=== PATIENT | male | born 1960 | race Hispanic/Latino ===

== ENCOUNTER 2018-09-21 16:11 | Inpatient (IN) | payer MEDICARE ==
[~2018-09-21] VITALS: Ht 165.1 cm; Wt 61.2 kg
[2018-09-21 16:52] LABS: BASOPHILS # (AUTO) 0.1 (0.0-0.1); EOSINOPHILS # (AUTO) 1.8 (0.0-0.4); EOSINOPHILS % 24.6 % (0.0-6.0); HEMATOCRIT 39.1 % (38.2-49.6); HEMOGLOBIN 13.2 g/dL (14.0-18.0); LYMPHOCYTES # (AUTO) 1.5 (1.0-3.2); LYMPHOCYTES % 20.3 % (18.0-39.1); MEAN CORPUSCULAR HEMOGLOBIN 29.5 pg (28-32); MEAN CORPUSCULAR HGB CONC 33.8 g/dL (31-35); MEAN CORPUSCULAR VOLUME 87.5 fL (81-99); MONOCYTES # (AUTO) 0.6 (0.2-0.8); MONOCYTES % 8.8 % (4.4-11.3); NEUTROPHILS # (AUTO) 3.3 (2.1-6.9); NEUTROPHILS % 45.2 % (38.7-80.0); PLATELET COUNT 211 x10e3/uL (140-360); RED BLOOD COUNT 4.47 x10e6/uL (4.3-5.7); RED CELL DISTRIBUTION WIDTH 12.1 % (11.7-14.4)
[2018-09-21 17:02] LABS: INR 0.9
[2018-09-21 17:12] LABS: ALANINE AMINOTRANSFERASE 29 IU/L (0-55); ALBUMIN 3.8 g/dL (3.5-5.0); ALBUMIN/GLOBULIN RATIO 1.2 (0.8-2.0); ALKALINE PHOSPHATASE 91 IU/L (40-150); ANION GAP 10.6 mmol/L (8-16); BLOOD UREA NITROGEN 21 mg/dL (7-26); BUN/CREATININE RATIO 17 (6-25); CALCIUM 9.5 mg/dL (8.4-10.2); CARBON DIOXIDE 26 mmol/L (22-29); CHLORIDE 101 mmol/L (98-107); CREATINE KINASE 393 IU/L (30-200); CREATININE, SERUM 1.21 mg/dL (0.72-1.25); EST GLOMERULAR FILTRATION RATE > 60 ML/MIN (60-); GLUCOSE 286 mg/dL (74-118); MAGNESIUM 1.9 MG/DL (1.3-2.1); POTASSIUM 4.6 mmol/L (3.5-5.1); SODIUM 133 mmol/L (136-145)
--- NOTE | 2018-09-21 17:25 | Diagnostic Imaging Report ---
EXAMINATION: CHEST SINGLE (PORTABLE) INDICATION: ^ERMD ORDER ^[id number] ^1640 ^Y COMPARISON: None FINDINGS: AP view TUBES and LINES: None. LUNGS: Lungs are well inflated. Lungs are clear. There is no evidence of pneumonia or pulmonary edema. PLEURA: No pleural effusion or pneumothorax. HEART AND MEDIASTINUM: The cardiomediastinal silhouette is unremarkable.. BONES AND SOFT TISSUES: No acute osseous lesion. Soft tissues are unremarkable. UPPER ABDOMEN: No free air under the diaphragm. IMPRESSION: No acute thoracic abnormality. Signed by: Dr. Hayley Flores M.D. on 09/21/2018 5:22 PM
[2018-09-21 17:32] LABS: THYROID STIMULATING HORMONE 2.414 uIU/mL (0.350-4.940)
[2018-09-21 18:04] LABS: CLARITY,URINE SL CLOUDY (CLEAR); COLOR,URINE YELLOW (YELLOW)
[2018-09-21 18:05] LABS: BILIRUBIN,URINE NEGATIVE (NEGATIVE); KETONES,URINE NEGATIVE (NEGATIVE); LEUKOCYTE ESTERASE ,URINE NEGATIVE (NEGATIVE); NITRITE,URINE NEGATIVE (NEGATIVE); PROTEIN,URINE DIPSTICK 2+ (NEGATIVE); URINE UROBILINOGEN 0.2 mg/dL (0.2 - 1)
[2018-09-21 18:10] LABS: BACTERIA,URINE FEW /HPF; EPITHELIAL CELLS,URINE MODERATE /LPF; MUCUS,URINE FEW (RARE); RBC,URINE 0-5 /HPF (0-5)
--- NOTE | 2018-09-21 18:15 | Diagnostic Imaging Report ---
History:3 day history of confusion, history of hypertension Comparison studies: None Technique: Axial images were obtained from the skull base to the vertex. Coronal and sagittal images reconstructed from the axial data. Dose modulation, iterative reconstruction, and/or weight based adjustment of the mA/kV was utilized to reduce the radiation dose to as low as reasonably achievable. Intravenous contrast: None Findings: Scalp/skull: No abnormalities. Extra-axial spaces: No masses. No fluid collections. Brain sulci: Mildly prominent. Ventricles: Mild compensatory dilatation. No hydrocephalus. Parenchyma: Cortical and subcortical hypodensities, centered in the angular gyrus of the left inferior parietal lobule and in the overlying superior parietal lobule are felt to be the result of an early subacute vascular insult. No hemorrhage, calcifications or mass effect. No additional acute or chronic cortical vascular insults. Sellar/suprasellar region: No abnormalities. Craniocervical junction: Patent foramen magnum. No Chiari one malformation. Incidental findings: Subtle atherosclerotic calcifications in the carotid siphons . Impression: 1. Cortical and subcortical hypodensities in the left parietal lobe (series 2, images 18-26) are felt to be the result of an acute nonhemorrhagic vascular insult, probably embolic. Recommend MRI without contrast to fully determine the extent of this insult. 2. No additional acute abnormalities. 3. Mild age-related generalized volume loss. 4. Findings discussed with Dr. Jasso on 09/21/2018 at 1810 hours. Signed by: Dr. Rohan Ledezma M.D. on 09/21/2018 6:12 PM
[2018-09-21] MEDS ORDERED: DEXTROSE 50% SYRINGE 50 ML IV PRN (18:30)
[2018-09-21] MEDS ORDERED: ONDANSETRON HCL INJ 2MG/ML 2ML 2 MG/ML VIAL IV PRN (18:30)
[2018-09-21] MEDS: SODIUM CHLORIDE 0.9% 1000ML 1,000 ML IV SCH (18:38)
--- OUTSIDE RECORDS SUMMARY | 2018-09-21 18:44 | XMS REPORT ---
Author Author [facility] Address Unknown Phone Unavailable Care Team Providers Care Plywood Stock Grader Name Role Phone Aj FLOR Unavailable Unavailable Problems This patient has no known problems. Allergies, Adverse Reactions, Alerts This patient has no known allergies or adverse reactions. Medications This patient has no known medications. Results Test Description Test Time Test Comments Text Results Atomic Results Result Comments CT BRAIN WO 2018-09-21 18:05:00 [place] [address] Patient Name: JIM NEWSOME MR #: [id number] : 1960 Age/Sex: 58/M Req #: [id number] Adm Physician: Ordered by: YARELIS PRICE IT INFRASTRUCTURE PROJECT MANAGER Report #: [id number] Location: ER Room/Bed: Procedure: [id number] CT/CT BRAIN WO Exam Date: 09/21/18 Exam Time: 1640 REPORT STATUS: Signed History:3 day history of confusion, history of hypertension Comparison studies: None Technique: Axial images were obtained from the skull base to the vertex. Coronal and sagittal images reconstructed from the axial data. Dose modulation, iterative reconstruction, and/or weight based adjustment of the mA/kV was utilized to reduce the radiation dose to as low as reasonably achievable. Intravenous contrast: None Findings: Scalp/skull: No abnormalities. Extra-axial spaces: No masses. No fluid collections. Brain sulci: Mildly prominent. Ventricles: Mild compensatory dilatation. No hydrocephalus. Parenchyma: Cortical and subcortical hypodensities, centered in the angular gyrus of the left inferior parietal lobule and in the overlying superior parietal lobule are felt to be the result of an early subacute vascular insult. No hemorrhage, calcifications or mass effect. No additional acute or chronic cortical vascular insults. Sellar/suprasellar region: No abnormalities. Craniocervical junction: Patent foramen magnum. No Chiari one malformation. Incidental findings: Subtle atherosclerotic calcifications in the carotid siphons . Impression: 1. Cortical and subcortical hypodensities in the left parietal lobe (series 2, images 18-26) are felt to be the result of an acute nonhemorrhagic vascular insult, probably embolic. Recommend MRI without contrast to fully determine the extent of this insult. 2. No additional acute abnormalities. 3. Mild age-related generalized volume loss. 4. Findings discussed with Dr. Price on 09/21/2018 at 1810 hours. Signed by: Dr. Rohan Ledezma M.D. on 09/21/2018 6:12 PM Dictated By: ROHAN LEDEZMA MD, MD 11 Transcri bed By: SOLANGE on 09/21/181811 COPY TO: YARELIS PRICE IT INFRASTRUCTURE PROJECT MANAGER CHEST [facility] (PORTABLE) 2018-09-21 17:16:00 [place] [address] Patient Name: JIM NEWSOME MR #: [id number] : 1960 Age/Sex: 58/M Req #: [id number] Adm Physician: Ordered by: YARELIS PRICE NP Report #: [id number] Location: ER Room/Bed: Procedure: [id number] DX/CHEST SINGLE (PORTABLE) Exam Date: 09/21/18 Exam Time: 1640 REPORT STATUS: Signed EXAMINATION: CHEST SINGLE (PORTABLE) INDICATION: ERMD ORDER [id number] 1640 Y COMPARISON: None FINDINGS: AP view TUBES and LINES: None. LUNGS: Lungs are well inflated. Lungs are clear. There is no evidence of pneumonia or pulmonary edema. PLEURA: No pleural effusion or pneumothorax. HEART AND MEDIASTINUM: The cardiomediastinal silhouette is unremarkable.. BONES AND SOFT TISSUES: No acute osseous lesion. Soft tissues are unremarkable. UPPER ABDOMEN: No free air under the diaphragm. IMPRESSION: No acute thoracic abnormality. Signed by: Dr. Lauren Hernandez M.D. on 09/21/2018 5:22 PM Dictated By: LAUREN HERNANDEZ MD 21 Transcribed By: SOLANGE on 09/21/181721 COPY TO: YARELIS PRICE NP
--- NOTE | 2018-09-21 19:09 | NUR ---
REPORT GIVEN TO JUAN MEJIA VIOLIN MAKER HAND NURSE
[2018-09-21 19:48] LABS: EOSINOPHILS % (MANUAL) 21 % (0-7); LYMPHOCYTES % (MANUAL) 14 % (19-48); METAMYELOCYTES % (MANUAL) 1 % (0-0); MONOCYTES % (MANUAL) 7 % (3.4-9.0); NEUTROPHILS % (MANUAL) 56 % (40-74); PLATELET ESTIMATE ADEQUATE; PLATELET MORPHOLOGY COMMENT NORMAL; RBC MORPHOLOGY COMMENT NORMAL
[2018-09-21] MEDS ORDERED: LANTUS 3ML100 UNITS/ (20:57)
[2018-09-21] MEDS ORDERED: CILOSTAZOL100 MG PO (20:57)
[2018-09-21] MEDS ORDERED: AMARYL2 MG PO (20:57)
[2018-09-21] MEDS ORDERED: ENALAPRIL MALEA20 MG PO (20:57)
[2018-09-21] MEDS ORDERED: GLUCOPHAGE850 MG PO (20:58)
[2018-09-21] MEDS ORDERED: ACTOS45 MG PO (20:58)
[2018-09-21] MEDS ORDERED: ALTOPREV40 MG PO (20:58)
[2018-09-21] MEDS: INSULIN LISPRO 100 UNIT/1 ML 3ML VIAL SQ SCH (22:54)
[2018-09-21 23:15] VITALS: BP 124/70
[2018-09-22] VITALS (8 sets, daily range): BP systolic 101–156; BP diastolic 58–78
[2018-09-22 01:05] LABS: CREATINE KINASE 278 IU/L (30-200)
[2018-09-22] MEDS: SODIUM CHLORIDE 0.9% 1000ML 1,000 ML IV SCH ×3 (02:22→18:39)
[2018-09-22 06:09] LABS: BASOPHILS # (AUTO) 0.1 (0.0-0.1); BASOPHILS % 0.9 % (0.0-1.0); EOSINOPHILS # (AUTO) 1.9 (0.0-0.4); EOSINOPHILS % 24.7 % (0.0-6.0); HEMATOCRIT 35.5 % (38.2-49.6); HEMOGLOBIN 12.1 g/dL (14.0-18.0); LYMPHOCYTES # (AUTO) 2.1 (1.0-3.2); LYMPHOCYTES % 27.6 % (18.0-39.1); MEAN CORPUSCULAR HEMOGLOBIN 29.9 pg (28-32); MEAN CORPUSCULAR HGB CONC 34.1 g/dL (31-35); MEAN CORPUSCULAR VOLUME 87.7 fL (81-99); MONOCYTES # (AUTO) 0.8 (0.2-0.8); MONOCYTES % 9.9 % (4.4-11.3); NEUTROPHILS # (AUTO) 2.8 (2.1-6.9); NEUTROPHILS % 36.8 % (38.7-80.0); PLATELET COUNT 183 x10e3/uL (140-360); RED BLOOD COUNT 4.05 x10e6/uL (4.3-5.7); RED CELL DISTRIBUTION WIDTH 12.3 % (11.7-14.4)
[2018-09-22 06:38] LABS: ANION GAP 11.8 mmol/L (8-16); BLOOD UREA NITROGEN 20 mg/dL (7-26); BUN/CREATININE RATIO 27 (6-25); CALCIUM 8.8 mg/dL (8.4-10.2); CARBON DIOXIDE 23 mmol/L (22-29); CHLORIDE 106 mmol/L (98-107); CHOL/HDL RATIO 2.8 (3.9-4.7); CHOLESTEROL 160 MD/DL (0-199); CREATININE, SERUM 0.74 mg/dL (0.72-1.25); EST GLOMERULAR FILTRATION RATE > 60 ML/MIN (60-); GLUCOSE 87 mg/dL (74-118); HDL CHOLESTEROL 57 MG/DL (40-60); LDL CHOLESTEROL 93 MG/DL (60-130); POTASSIUM 3.8 mmol/L (3.5-5.1); SODIUM 137 mmol/L (136-145); TRIGLYCERIDES 48 MG/DL (0-149)
[2018-09-22] MEDS: INSULIN LISPRO 100 UNIT/1 ML 3ML VIAL SQ SCH ×5 (07:30→22:26)
[2018-09-22 08:15] LABS: EOSINOPHILS % (MANUAL) 23 % (0-7); LYMPHOCYTES % (MANUAL) 8 % (19-48); MONOCYTES % (MANUAL) 7 % (3.4-9.0); NEUTROPHILS % (MANUAL) 56 % (40-74); PLATELET ESTIMATE ADEQUATE; PLATELET MORPHOLOGY COMMENT NORMAL; RBC MORPHOLOGY COMMENT NORMAL
[2018-09-22] MEDS: ENALAPRIL MALEATE 10 MG TAB PO SCH (08:22)
[2018-09-22] MEDS: PIOGLITAZONE HCL 45 MG TAB PO SCH ×2 (08:22→12:33)
[2018-09-22] MEDS ORDERED: ASPIRIN 81 MG ENTERIC COATED PO SCH (09:00)
[2018-09-22] MEDS ORDERED: NON-FORMULARY MEDICATION (Enalapril Maleate 20 MG) PO SCH (09:00)
[2018-09-22 09:42] LABS: CREATINE KINASE 212 IU/L (30-200)
--- NOTE | 2018-09-22 14:15 | NUR ---
ST NOTE: Acknowledgement for SLE- pt with PT at 10:30 and no photoradio operator available at 1415. Will re-attempt on 09/23/18
--- NOTE | 2018-09-22 16:29 | NUR ---
Nutrition Screen Note RD Recommendation for Physician: -Continue ADA diet as ordered; diet texture per CABLE ASSEMBLER Plan of Care: RD following, monitoring for tolerance and adequacy Nutrition reason for involvement: Diagnosis Primary Diagnose(s): acute CVA, hyperglycemia PMH: DM Ht: 65in Wt: 130lb BMI: 21.6kg/m2 IBW: 136lb RD Assessment: (09/22) Chart reviewed. Labs and meds reviewed. 58yo, who was admitted for CVA. HbA1c at 9.3%. Visited pt in the room. Pt reported good appetite with 100% lunch intake. No complains of nausea or vomiting. LBM 09/22. Pt denied any chewing or swallowing difficulty. CABLE ASSEMBLER following for swallow evaluation. No recent weight loss reported. Will continue to monitor and follow. Current Diet: ADA diet Malnutrition Evaluation (date of eval) The patient does not meet criteria for a specified degree of malnutrition at this time. Will re-evaluate at follow-up as appropriate. Diet Education Needs Assessment: Diet education not indicated. Nutrition Care Level: low Signed: Taylor Jhaveri, MS, RD, LD
--- NOTE | 2018-09-22 17:50 | NUR ---
History and PHysical cc: confusion and limb weakness HPI: 58yoM, PCP , developed confusion and limb weakness on right; Brought to hospital, found to have acute stroke. PMH: DM, HTN PHSx: back Allergies; see emr FH/SH; ; hx cigs; Meds; see MAR ROS: unobtainable v/s; rev'd PE: tired appearing anicteric ns1s2 mod BS no e/t RIGHT ARM WEAK 4/5, WRIST DROP ON RIGHT; right leg appears to be 5/5 with left leg. Pt oriented to self only; confused; unable to perform complete neuro exam skin dry flat affect labs/meds; rev'd A/P: 58yoM Acute Ischemic stroke left parietal lobe- ASA/statin/echo/carotid U/S /neurology consult; PT/OT consult; HTN- use antiHTN meds; HLD- statin DM2- check hab1c/lipids; Hyponatremia- mild; f/u labs N. anemia- f/u Prop; lovenox; pepcid Dispo: f/u labs; Tyrell Miller MD, PhD.
[2018-09-22 18:24] LABS: CREATINE KINASE 173 IU/L (30-200)
[2018-09-22] MEDS: ENOXAPARIN SOD INJ 40 MG/0.4 ML SYR SC SCH (20:22)
[2018-09-22] MEDS ORDERED: ATORVASTATIN 20 MG TAB PO SCH ×2 (21:00)
[2018-09-22] MEDS ORDERED: SODIUM CHLORIDE 0.9% 100 ML 100 ML ONE (22:17)
[2018-09-22] MEDS ORDERED: IOPAMIDOL 370 MG/ML 200 ML INFUS..BTL INJ ONE (22:17)
[2018-09-22] MEDS: ATORVASTATIN 40 MG TAB PO SCH (22:26)
--- NOTE | 2018-09-22 22:48 | Diagnostic Imaging Report ---
EXAMINATION: CT angio of the neck and head with contrast. HISTORY:Right-sided weakness. COMPARISON:No direct comparison, compared with CT brain from 09/21/2018. TECHNIQUE: Multidetector helical axial images were acquired through the neck and head during infusion of iodinated contrast material. Images were reviewed in multiplanar and 3-dimensional format. Dose modulation, iterative reconstruction, and/or weight based adjustment of the mA/kV was utilized to reduce the radiation dose to as low as reasonably achievable. Contrast: 100 mL of Isovue-370 . FINDINGS: NECK: If carotid bulb stenosis is present, stenosis is measured with respect to the distal extracranial internal carotid artery. Aortic arch and major vessels: Few, scattered nonstenotic atherosclerotic calcification. Focal hard atherosclerotic plaque at the origin of left subclavian artery without significant vascular stenosis. Otherwise patent, no abnormality. Common carotid arteries: Patent Cervical carotid bifurcations: Right: Mild nonstenotic atherosclerotic calcification. Left :Moderate to severe hard atherosclerotic plaque. Internal carotid arteries: Right: Focal hard atherosclerotic plaque at the origin of right internal carotid artery results in approximately 25% vascular stenosis. Left: Mixed atherosclerotic plaque at the origin of left internal carotid artery results in approximately 65% vascular stenosis. Vertebral arteries: Patent HEAD: Internal carotid arteries: Mild atherosclerotic calcification in bilateral clinoid and supraclinoid segments without significant vascular stenosis. Vertebral arteries: Patent. Basilar artery: Patent. Posterior cerebral arteries: Patent. Anatomical variants: Anterior communicating artery :Not visualized Posterior communicating arteries: Not visualized. Vertebral arteries: Mild left dominant. Incidental finding: Multifocal dental caries and endodontal disease, the activity of which is to be determined clinically. Chronic fracture deformity of the medial wall of left orbit. IMPRESSION: 1. Mixed atherosclerotic plaque at the origin and proximal left internal carotid artery results in approximately 65% vascular stenosis. 2. Focal hard atherosclerotic plaque at the origin of right internal carotid artery results in approximately 25% vascular stenosis. 3. Mild right and moderate to severe left atherosclerotic plaque at the carotid bulbs. 4. Mild atherosclerotic calcification in bilateral clinoid and supraclinoid segments without significant vascular stenosis. Signed by: Dr. Vika Morris M.D. on 09/22/2018 10:45 PM
[2018-09-23] VITALS (8 sets, daily range): BP systolic 109–153; BP diastolic 62–86
--- NOTE | 2018-09-23 02:41 | Consultation ---
DATE OF CONSULTATION: 09/22/2018 NEUROLOGY CONSULT NOTE HISTORY OF PRESENT ILLNESS: Mr. Davidson is a 58-year-old hohfi-vrvz-wjdddlfl man with past medical history significant for hypertension, hyperlipidemia, diabetes mellitus type 2, and peripheral vascular disease, admitted to [facility] on September 21, 2018, with symptoms of stroke. Three to four days prior to admission, the patient experienced a sudden onset of dysarthria, possible aphasia, weakness and numbness affecting the right arm and leg, and dizziness. Mr. Davidson does not report a visual field cut or other disturbance or confusion. He does report impairment of balance and gait, which he attributes to weakness in the right leg. Initially, Mr. Davidson resisted coming to the hospital. However, after the symptoms persisted for a few days, his convinced him to come to the emergency center at [facility] for further evaluation of his symptoms. Upon arrival in the emergency center, the patient was afebrile with a blood pressure of 152/82 mmHg and a pulse of 92 beats per minute. Documentation of the patient's neurological examination is unable for review at this time. While in the emergency center, Mr. Davidson underwent a CT of the brain without contrast, which revealed an acute ischemic stroke in the left parietal lobe (posterior left middle cerebral artery distribution). Mr. Davidson was admitted to [facility] as an inpatient for further evaluation and treatment of his symptoms. Mr. Davidson does not report experiencing similar symptoms previously. He is not taking aspirin, Plavix, or anticoagulant medication on a daily basis. REVIEW OF SYSTEMS: Confusion (chronic), dysarthria, aphasia, weakness of the right arm and leg, numbness of the right arm and leg, impaired balance and gait, and dizziness. Otherwise, the 12-point review of systems is negative. PAST MEDICAL HISTORY: Hypertension, hyperlipidemia, diabetes mellitus type 2, peripheral vascular disease. PAST SURGICAL HISTORY: Lumbar spine surgery, right foot surgery. PAST HOSPITALIZATIONS: Surgeries/procedures as listed, multiple hospitalizations for complications of diabetes mellitus. FAMILY MEDICAL HISTORY: Diabetes mellitus. SOCIAL HISTORY: Mr. Davidson is . He is not employed. The patient does report a remote history of tobacco use, but quit smoking cigarettes years ago. The patient does not report current or prior alcohol or recreational drug use. HOME MEDICATIONS: Cilostazol 100 mg by mouth twice daily, enalapril 20 mg by mouth daily, lovastatin 40 mg by mouth daily, glimepiride 2 mg by mouth twice daily, metformin 850 mg by mouth 3 times daily with meals, pioglitazone 45 mg by mouth daily, Lantus. ALLERGIES: NO KNOWN DRUG ALLERGIES. NO KNOWN FOOD ALLERGIES. NO KNOWN ALLERGIES TO LATEX. NO KNOWN ALLERGIES TO IODINE OR OTHER CONTRAST MATERIAL. PHYSICAL EXAMINATION: VITAL SIGNS: Height 65 inches, weight 130 pounds, BMI 21.6 kg/m2, blood pressure 121/66 mmHg, pulse 77 beats per minute, respiratory rate 16 breaths per minute, and oxygen saturation 96% on room air. GENERAL: The patient is awake and alert, does not appear distressed. HEENT: Normocephalic, atraumatic. Pupils are equal, round, and reactive to light. Moist mucous membranes. NECK: Supple. No appreciable thyromegaly. No appreciable carotid bruits. CARDIOVASCULAR: S1, S2, regular rate and rhythm. No murmurs, rubs, or gallops. RESPIRATORY: Clear to auscultation bilaterally. No wheezes, rhonchi, or rales. EXTREMITIES: The skin is warm and dry. No clubbing, cyanosis, or edema. The posterior tibial and dorsalis pedis pulses are 1+ and symmetric. SKIN: No rashes or lesions. NEUROLOGIC: Memory/Attention: The patient is awake and alert, oriented to person, place, time, and situation. Cranial Nerves: Cranial nerve I-not tested. Cranial nerves II, III, IV, and -pupils are equal and round, reactive briskly to light (from 4 mm to 2 mm). Extraocular movements intact. No nystagmus. Cranial nerve V- sensation to light touch and pinprick is intact in the bilateral V1 through V3 distributions. Strength in the temporalis and masseter muscles are within normal limits. Cranial nerve VII-the face is asymmetric on the right, as are all facial movements. Mild right central facial weakness is appreciated. Cranial nerves VIII-hearing is intact to finger rub bilaterally. Cranial nerves IX, X-the soft palate elevates equally and symmetrically. Cranial nerve XI-normal strength of the bilateral sternocleidomastoid and trapezius muscles. Cranial nerve XII-the tongue protrudes to midline and moves symmetrically from side to side. Strength: Bulk is normal. Strength is 5/5 in the left deltoids, biceps, triceps, wrist flexors and extensors, finger flexors and extensors, intrinsic hand muscles, hip flexors, knee flexors and extensors, ankle dorsiflexion and plantar flexion, and intrinsic foot muscles. In the right arm, the flexors are 4+/5 and the extensors are 4/5. In the right leg, flexors are 4-/5 and extensors are 4/5. Tone is mildly increased in the right arm and right leg. DTRs: Deep tendon reflexes are 1+ at the left triceps, biceps, brachioradialis, and patella. Deep tendon reflexes are 2+ at the right triceps, biceps, brachioradialis, and patella. Deep tendon reflexes are absent and symmetric at the Achilles. Plantar responses are flexor on the left and extensor on the right. Sensation: Sensation is intact to light touch and pinprick in both arms and both legs. Cerebellar: Hjgzdt-khsi-njbess and heel-keys movements are impaired on the right, but within the bounds of paresis. Gait: Deferred. Speech: Spontaneous speech is mildly dysarthric with moderate receptive aphasia. Repetition is not intact. Involuntary movements: None. Pronator drift: Right arm and right leg. LABORATORY DATA: The most recent basic metabolic panel is unremarkable. A liver function panel collected on September 21, 2018, is unremarkable. Creatine kinase has been elevated at 393, 278, 212, 173. Otherwise, cardiac enzymes are negative. B-natriuretic peptide is less than 10.0. TSH is 2.414. Hemoglobin A1c is 9.3. Total cholesterol 160, triglycerides 48, LDL cholesterol 93, HDL cholesterol 57. The CBC with differential and platelets reveals a white blood cell count of 7.68 with a right shift with 56.8% neutrophils, 27.6% lymphocytes, 9.9% monocytes, 24.7% eosinophils, and 0.9% basophils. The coagulation profile is within normal limits. A urinalysis revealed slightly cloudy urine with 2+ protein, 3+ glucose, 1+ blood. A urine culture collected on September 21, 2018, is pending. DIAGNOSTIC STUDIES: Electrocardiogram of 09/21/2018: Normal sinus rhythm at 88 beats per minute. Chest x-ray of 09/21/2018: No acute thoracic abnormality. CT of the brain without contrast of 09/21/2018: On my review, there is acute ischemia in the left posterior middle cerebral artery distribution. Cerebral volumes are appropriate for age. There are findings compatible with rghp-nt-fhbfvago chronic small-vessel ischemic disease. Echocardiogram of 09/22/2018: Ejection fraction 50%-55%. No valvular disease is noted. Bilateral carotid artery ultrasound with Doppler of 09/22/2018: There is atherosclerosis without hemodynamically significant stenosis at the right carotid bulb and right carotid bifurcation. There is atherosclerosis with possible hemodynamically significant stenosis at the left carotid bulb, the left carotid bifurcation, and the left internal carotid artery with a notation of greater than 70% narrowing in the left internal carotid artery. Flow is antegrade in the left vertebral artery, flow is not indicated in the right vertebral artery. ASSESSMENT AND PLAN: Mr. Davidson is a 58-year-old feyon-apeb-fuhflrmf man with multiple vascular risk factors, admitted to [facility] on September 21, 2018, with a left posterior distribution middle cerebral artery stroke. The patient's neurological examination is significant for mild right hemiparesis, dysarthria, and receptive aphasia. The patient's laboratory data and other diagnostic studies have been reviewed and are documented above. RECOMMENDATIONS: Recommendations are as follows: 1. A CTA of the brain and neck with contrast will be ordered for further evaluation of possible left internal carotid artery stenosis. 2. Aspirin will be continued for stroke prophylaxis, but the dose will be increased to 325 mg by mouth daily. 3. As the patient's stroke occurred 3-4 days ago, his blood pressure may be normalized. His goal blood pressure prior to discharge was less than 140/90 mmHg. Continue the patient's home antihypertensive medications. Monitor vital signs per unit protocol. 4. The patient's goal total cholesterol is less than 200 with an LDL of less than 70. The patient's LDL was 93. Treatment with atorvastatin will be continued, but the dose will be increased to 80 mg by mouth at bedtime daily. 5. The patient's goal hemoglobin A1c is less than 7.0. Mr. Davidson's hemoglobin A1c is 9.3. Treatment will be deferred to the primary and other services following the patient. Of note, treatment with metformin should be held for 48 hours, status post administration of iodinated contrast. 6. Speech and Physical Therapy evaluations have been ordered. The Speech Therapy evaluation is pending. Physical Therapy is recommending discharge to home with outpatient physical therapy. Occupational Therapy has the same recommendations as Physical Therapy. 7. Gastrointestinal prophylaxis with Pepcid 20 mg by mouth twice daily with meals. Deep venous thrombosis prophylaxis with Lovenox 40 mg subcutaneously daily. 8. Defer treatment of the remaining medical comorbidities to the primary and other services following the patient. Thank you for this consultation. I will continue to follow the patient while he remains in the hospital. TIME SPENT: 70 minutes. Nai Zamarripa MD CP/TIMO /[id number] MTDD
--- NOTE | 2018-09-23 06:40 | NUR ---
IM- progress note O/N; no events ROS: unobtainable v/s; rev'd PE: tired appearing anicteric ns1s2 mod BS no e/t RIGHT ARM WEAK 4/5, WRIST DROP ON RIGHT; right leg appears to be 5/5 with left leg. Pt oriented to self only; confused; unable to perform complete neuro exam skin dry flat affect labs/meds; rev'd A/P: 58yoM Acute Ischemic stroke left parietal lobe- ASA/statin/echo/carotid U/S /neurology consult; PT/OT consult; HTN- use antiHTN meds; HLD- statin DM2- check hab1c/lipids; Hyponatremia- mild; f/u labs N. anemia- f/u Prop; lovenox; pepcid Dispo: f/u labs; 09/23 Left carotid 65% stenosis, right 25%, mod-severe plaque in bulb; f/u echo. BP is controlled. Tyrell Miller MD, PhD.
[2018-09-23] MEDS: INSULIN LISPRO 100 UNIT/1 ML 3ML VIAL SQ SCH ×4 (07:30→21:57)
[2018-09-23] MEDS ORDERED: ASPIRIN 81 MG ENTERIC COATED PO SCH (09:00)
[2018-09-23] MEDS: PIOGLITAZONE HCL 45 MG TAB PO SCH (09:09)
[2018-09-23] MEDS: ASPIRIN 325 MG TAB EC PO SCH (09:09)
[2018-09-23] MEDS: FAMOTIDINE 20 MG TAB PO SCH ×2 (09:09→18:24)
[2018-09-23] MEDS: SODIUM CHLORIDE 0.9% 1000ML 1,000 ML IV SCH ×3 (10:19→18:22)
[2018-09-23] MEDS: ENALAPRIL MALEATE 10 MG TAB PO SCH (12:41)
[2018-09-23] MEDS: ENOXAPARIN SOD INJ 40 MG/0.4 ML SYR SC SCH (18:24)
--- NOTE | 2018-09-23 19:10 | NUR ---
Bedside report received. patient received aaox2-3, sitting in bed. resp. even and unlabored. no s/s of distress observed. denies pain. denies needs. family member to side. call light within reach. bed locked and in lowest position. continue to monitor.
--- NOTE | 2018-09-23 19:25 | NUR ---
Dr. Zamarripa rounding. Dr. Mata consulted per orders.
[2018-09-23] MEDS: ATORVASTATIN 40 MG TAB PO SCH (21:56)
[2018-09-24] VITALS: BP 139/80
--- NOTE | 2018-09-24 00:05 | NUR ---
WALKING ROUNDS. PATIENT IN STABLE CONDITION, SLEEPING COMFORTABLY.
--- NOTE | 2018-09-24 00:30 | NUR ---
PATIENT NEEDED ZIPPER JOINER TO BATHROOM. NOTED PATIENT SWEATING PROFUSELY, SUGAR AT 52. GAVE JUICE AND COOKIES. PATIENT STATED HE FEELS BETTER. WASHED OFF PATIENT, LINEN AND GOWN CHANGED. WILL REASSESS BLOOD SUGAR.
--- NOTE | 2018-09-24 01:20 | NUR ---
blood sugar reassessed, now 104
[2018-09-24] MEDS: SODIUM CHLORIDE 0.9% 1000ML 1,000 ML IV SCH ×2 (02:22→10:22)
[2018-09-24 04:00] VITALS: BP 165/81
--- NOTE | 2018-09-24 05:29 | NUR ---
Discharge Summary A/P: 58yoM Acute Ischemic stroke left parietal lobe- ASA/statin/echo/carotid U/S /neurology consult; PT/OT consult; HTN- use antiHTN meds; HLD- statin DM2- check hab1c/lipids; Hyponatremia- mild; f/u labs N. anemia- f/u Prop; lovenox; pepcid Dispo: f/u labs; 09/23 Left carotid 65% stenosis, right 25%, mod-severe plaque in bulb; f/u echo. BP is controlled. 09/24 f/u echo; d/c actos; f/u PCP 1 week, 10 days, 1 week. Stable and improving; (right wrist drop resolved) d/c >35mins d/c home with PT. Tyrell Miller MD, PhD.
[2018-09-24] MEDS ORDERED: Atorvastatin PO (05:57)
[2018-09-24] MEDS ORDERED: ASPIR 8181 MG PO (05:57)
[2018-09-24] MEDS ORDERED: PLAVIX75 MG PO (05:57)
[2018-09-24] MEDS ORDERED: FAMOTIDINE20 MG PO (05:57)
[2018-09-24] MEDS ORDERED: METOPROLOL TART25 MG PO (06:01)
[2018-09-24] MEDS: FAMOTIDINE 20 MG TAB PO SCH (08:20)
[2018-09-24] MEDS: ENALAPRIL MALEATE 10 MG TAB PO SCH (09:20)
[2018-09-24 09:32] VITALS: BP 162/81
--- NOTE | 2018-09-24 11:01 | NUR ---
CASE MANAGEMENT ASSESSMENT Health Inspector to bedside to discuss plan of care with patient/family. CM/SW role and care transitions discussed. Anticipated discharge plan discussed along with duration of care. CM/SW discussed patients right to make decisions in care. CM/SW work hours given. Patient lives: with Michelle and kids Admit/Transfer: thru ED Hospital/ER visits since last admit: states admitted sometime last year at [place] POA/Emergency contact: Michelle Davidson [phone] Current/Previous Home Health: none PCP/Follow-up Care: Dr. Kelly - advised pt to follow up with a MD within 7 days of discharge Current/Previous DME: none Scale of 1-10 how comfortable does patient feel with disease management in outpatient setting: Other Services: none Employment Status: unemployed Areas of Concerns: embolic cva Referral Needs: home health Education Needs: medical management IMM/READ given and signed (if applicable): IMM on chart Goal for discharge: Home with home health CM spoke with pt regarding home health. Pt is agreeable to any company that takes his insurance. Choice letter signed for [facility]. Copy to pt. Informed pt that home health will see pts within 24-48 hrs of discharge and to call them if he does not hear from them. He acknowledged. CM/SW left business card at the bedside with contact information. Name and number was also written on the patients whiteboard. Patient verbalized understanding of discussion. CM will follow-up with ongoing discharge and transition of care needs.
[2018-09-24] MEDS: ASPIRIN 325 MG TAB EC PO SCH (11:14)
--- NOTE | 2018-09-24 11:45 | NUR ---
Pt has been evaluated and was discharged due to high level of functioning. No PT services recommended. Pls refer to the PT eval form. Addendum: 09/24/18 at 1458 by Melchor Stewart PT Amended: Links added.
[2018-09-24 12:28] VITALS: BP 198/96
[2018-09-24] MEDS: INSULIN LISPRO 100 UNIT/1 ML 3ML VIAL SQ SCH (12:53)
--- NOTE | 2018-09-24 13:46 | NUR ---
Spoke to Bernie at [facility]. She has received clinicals. Stated they should be able to accept pt. Informed her that pt will discharge today. She stated that once they work up the clinical, they will reach out to pt. Addendum: 09/24/18 at 1354 by Maritza Ford CM P [phone] F [phone]
== END 2018-09-24 13:50 | disposition home health service (06) | DRG 65 ==
LOC: ER 16:11 → ERHOLD 18:22 → MED/SURG 23:16
PROVIDERS: ADMIT Internal Medicine; ATTEND Internal Medicine
DX: I63.512 Cerebral infarction due to unspecified occlusion or stenosis of left middle cerebral artery (principal); I69.351 Hemiplegia and hemiparesis following cerebral infarction affecting right dominant side; E87.1 Hypo-osmolality and hyponatremia; R47.01 Aphasia; I10 Essential (primary) hypertension; E78.5 Hyperlipidemia, unspecified; D64.9 Anemia, unspecified; E11.51 Type 2 diabetes mellitus with diabetic peripheral angiopathy without gangrene; I65.23 Occlusion and stenosis of bilateral carotid arteries; R47.1 Dysarthria and anarthria; E11.65 Type 2 diabetes mellitus with hyperglycemia; R26.9 Unspecified abnormalities of gait and mobility; Z87.891 Personal history of nicotine dependence; Z79.4 Long term (current) use of insulin; Z79.02 Long term (current) use of antithrombotics/antiplatelets; Z79.82 Long term (current) use of aspirin
CPT/HCPCS: 36415; 70450; 70496; 70498; 71045; 80048; 80053; 80061; 81001; 82550; 82553; 82948; 83036; 83735; 83880; 84443; 84484; 85025; 85610; 85730; 87086; 92523; 93005; 93306; 93880; 99284; J1650; J7030; Q9967

== ENCOUNTER 2019-10-25 13:37 | Inpatient (IN) | payer MEDICARE ==
[~2019-10-25] VITALS: Ht 165.1 cm; Wt 66.5 kg
[~2019-10-25 13:37] MED LIST: ACTOS45 MG PO; ALTOPREV40 MG PO; AMARYL2 MG PO; ASPIR 8181 MG PO; Atorvastatin PO; CILOSTAZOL100 MG PO; ENALAPRIL MALEA20 MG PO; FAMOTIDINE20 MG PO; GLUCOPHAGE850 MG PO; LANTUS 3ML100 UNITS/; METOPROLOL TART25 MG PO; PLAVIX75 MG PO
[2019-10-25 14:19] LABS: BASOPHILS # (AUTO) 0.1 (0.0-0.1); BASOPHILS % 0.5 % (0.0-1.0); EOSINOPHILS % 15.9 % (0.0-6.0); HEMATOCRIT 28.3 % (38.2-49.6); HEMOGLOBIN 9.2 g/dL (14.0-18.0); LYMPHOCYTES # (AUTO) 1.4 (1.0-3.2); LYMPHOCYTES % 11.5 % (18.0-39.1); MEAN CORPUSCULAR HEMOGLOBIN 28.2 pg (28-32); MEAN CORPUSCULAR HGB CONC 32.5 g/dL (31-35); MEAN CORPUSCULAR VOLUME 86.8 fL (81-99); MONOCYTES # (AUTO) 1.2 (0.2-0.8); MONOCYTES % 9.5 % (4.4-11.3); NEUTROPHILS # (AUTO) 7.7 (2.1-6.9); NEUTROPHILS % 61.9 % (38.7-80.0); PLATELET COUNT 411 x10e3/uL (140-360); RED BLOOD COUNT 3.26 x10e6/uL (4.3-5.7); RED CELL DISTRIBUTION WIDTH 12.5 % (11.7-14.4)
[2019-10-25 14:34] LABS: ALANINE AMINOTRANSFERASE 32 IU/L (0-55); ALBUMIN 3.1 g/dL (3.5-5.0); ALBUMIN/GLOBULIN RATIO 0.7 (0.8-2.0); ALKALINE PHOSPHATASE 167 IU/L (40-150); ANION GAP 13.3 mmol/L (8-16); BLOOD UREA NITROGEN 17 mg/dL (7-26); BUN/CREATININE RATIO 18 (6-25); CALCIUM 9.4 mg/dL (8.4-10.2); CARBON DIOXIDE 24 mmol/L (22-29); CHLORIDE 106 mmol/L (98-107); CREATININE, SERUM 0.95 mg/dL (0.72-1.25); EST GLOMERULAR FILTRATION RATE > 60 ML/MIN (60-); GLUCOSE 221 mg/dL (74-118); POTASSIUM 4.3 mmol/L (3.5-5.1); SODIUM 139 mmol/L (136-145)
--- NOTE | 2019-10-25 14:53 | Diagnostic Imaging Report ---
EXAMINATION: FOOT LEFT COMPLETE INDICATION: Heel infection COMPARISON: None FINDINGS: Soft tissue ulceration at the heel with associated soft tissue swelling. No specific radiographic evidence of osteomyelitis. No acute fracture or dislocation. Alignment appears anatomic. Scattered degenerative changes. Diffuse atherosclerotic arterial calcifications. IMPRESSION: Soft tissue ulceration of the left heel without specific radiographic findings of underlying osteomyelitis. No acute osseous injury. Scattered degenerative changes. Signed by: Desirae Martines MD on 10/25/2019 2:50 PM
[2019-10-25 14:59] LABS: ERYTHROCYTE SEDIMENTATION RATE 109 mm/hr (0-13)
[2019-10-25] MEDS ORDERED: PIPERACILLIN/TAZO 4.5 GM 100 ML IV STA (15:02)
[2019-10-25] MEDS ORDERED: AMLODIPINE BESY10 MG PO (15:10)
[2019-10-25] MEDS ORDERED: LISINOPRIL40 MG PO (15:10)
[2019-10-25] MEDS ORDERED: ATORVASTATIN CA40 MG PO (15:10)
[2019-10-25] MEDS ORDERED: VANCOMYCIN 1GM/NS 250 ML 250 ML IV SCH (15:30)
[2019-10-25 16:57] VITALS: BP 140/65
[2019-10-25 17:00] VITALS: BP 140/65
--- NOTE | 2019-10-25 19:55 | NUR ---
RECEIVED PT IN BED AOX3 .PT HAS CELLULITIS TO LEFT LOWER FOOT .DENIES PAIN .PT IS ON IV ABT .CALL LIGHT WITH IN REACH .CONTINUE TO MONITOR
[2019-10-25 20:20] VITALS: BP 140/65
[2019-10-25 20:54] VITALS: BP 157/81
[2019-10-25 22:00] LABS: EOSINOPHILS % (MANUAL) 10 % (0-7); LYMPHOCYTES % (MANUAL) 13 % (19-48); MONOCYTES % (MANUAL) 6 % (3.4-9.0); NEUTROPHILS % (MANUAL) 65 % (40-74)
[2019-10-25 22:01] LABS: PLATELET ESTIMATE ADEQUATE; PLATELET MORPHOLOGY COMMENT NORMAL; RBC MORPHOLOGY COMMENT NORMAL
[2019-10-25] MEDS ORDERED: DEXTROSE 50% SYRINGE 50 ML IV PRN (22:30)
[2019-10-25] MEDS ORDERED: HYDRALAZINE HCL 20 MG/ML VIAL IV PRN (22:30)
[2019-10-25] MEDS ORDERED: ACETAMINOPHEN 325 MG TAB PO PRN (22:30)
[2019-10-25] MEDS: CEFEPIME 1GM/NS 0.9% 50 ML 50 ML IV SCH (22:30)
[2019-10-25] MEDS ORDERED: ONDANSETRON HCL INJ 2MG/ML 2ML 2 MG/ML VIAL IV PRN (22:30)
[2019-10-25] MEDS ORDERED: SODIUM CHLORIDE 0.9% 250ML 250 ML ONE (23:34)
[2019-10-25] MEDS: HYDROCODONE/APAP 5MG-325MG TAB PO PRN (23:53)
[2019-10-26] VITALS (8 sets, daily range): BP systolic 107–138; BP diastolic 55–71
--- NOTE | 2019-10-26 05:26 | NUR ---
PT RESTING C/O PAIN TO THE LEFT LEG .MEDICATED WITH ORDERED PAIN MEDICATION.CALL LIGHT WITH IN REACH .CONTINUE TO MONITOR
--- NOTE | 2019-10-26 06:53 | NUR ---
BEDSIDE REPORT GIVEN TO THE ONCOMING NURSE
--- NOTE | 2019-10-26 07:18 | NUR ---
BEDSIDE REPORT GIVEN TO THE ONCOMING NURSE
[2019-10-26] MEDS: INSULIN LISPRO 100 UNIT/1 ML 3ML VIAL SQ SCH ×4 (07:30→21:00)
[2019-10-26] MEDS: CLOPIDOGREL BISULFATE 75 MG TAB PO SCH (08:26)
[2019-10-26] MEDS: LISINOPRIL 20 MG TAB PO SCH (08:26)
[2019-10-26] MEDS: AMLODIPINE BESYLATE 10 MG TAB PO SCH (08:26)
[2019-10-26] MEDS: FAMOTIDINE 20 MG TAB PO SCH ×2 (08:26→16:19)
[2019-10-26] MEDS: ATORVASTATIN 40 MG TAB PO SCH (08:26)
--- NOTE | 2019-10-26 10:17 | NUR ---
PATIENT AWAKE AND ALERT ACYANOTIC. TRANSFERRED TO RADIOLOGY VIA WHEELCHAIR AT APPROXIMATELY 0954. WOUND TO LEFT FOOT LOOSELY COVERED FOR XRAY AND MRI PROCEDURES
--- NOTE | 2019-10-26 11:03 | Consultation ---
DATE OF CONSULTATION: 10/26/2019 REASON FOR CONSULTATION: Nonhealing ulceration to the left foot with the patient being diabetic. HISTORY OF PRESENT ILLNESS: This is a pleasant 59-year-old male, who is well known to me from previous office visits, whose ulceration to the left heel has gotten progressively worse secondary to his peripheral arterial disease and diabetic neuropathy. He is currently denying any history of fever, chills, nausea, or vomiting, but has some foul smell to the left heel ulceration. Ulceration was debrided down to subcutaneous tissue and muscle in the office several days ago. He is currently on oral antibiotics such as Bactrim and Augmentin 875 mg. PAST MEDICAL HISTORY: Remarkable for insulin-dependent diabetes times 10+ years and hypertension. PAST SURGICAL HISTORY: Remarkable for back surgery. ALLERGIES: THE PATIENT DENIES. SOCIAL HISTORY: Denies any smoking, drinking, or recreational drug use. FAMILY HISTORY: Remarkable for diabetes. CURRENT MEDICATIONS: Note listed in chart including IV Zosyn and vancomycin. REVIEW OF SYSTEMS: CARDIAC: Denies any palpitations or arrhythmias. RESPIRATORY: Denies any shortness of breath or productive cough. GASTROINTESTINAL: Denies any diarrhea or constipation. GENITOURINARY: Denies any hematuria or problems voiding. LABORATORY DATA: Noted has a white blood cell count of 12.3, hemoglobin 9.2 with a platelet count of 411. Blood glucose of 138. PHYSICAL EXAMINATION: VITAL SIGNS: Afebrile, pulse rate 87, respirations 19, blood pressure 117/65, O2 saturation 96%. Podiatric physical examination reveals the following: VASCULATURE: Pedal pulses of both the DP and PT are diminished to both lower extremities. Skin temperature is warm and cool to touch. NEUROLOGIC: Reveals decreased and protective sensation when utilizing [place]-Gordon 5.07 monofilament wire. MUSCULOSKELETAL: Reveals muscle mass to be symmetrical. Muscle strength to be 4/5 to all muscle groups. DERMATOLOGIC: Grade 3 ulceration, posterior aspect, left heel with positive cellulitis and foul smell. Some necrosis noted, but no bone exposed. More than 3 cm to 3.5 cm in diameter. ASSESSMENT: Grade 3 ulcer, diabetic neuropathy, peripheral arterial disease. PLAN: We will continue IV antibiotics. We will continue offloading with toe under calf at all times to offload heel. We will start Santyl followed by diluted wet-to-dry Betadine b.i.d. pending MRI examination on this date. Dr. Jaeger for vascular evaluation and possible intervention. We will treat conservatively for now. The patient is aware if not responsive, may lose part of his foot or even his leg. GUMARO Almonte/TIMO /[id number]
[2019-10-26] MEDS: CEFEPIME 1GM/NS 0.9% 50 ML 50 ML IV SCH ×2 (11:18→22:00)
--- NOTE | 2019-10-26 11:52 | Diagnostic Imaging Report ---
Bilateral calcanei - 2 view(s) each HISTORY: Pain. COMPARISON: None available. FINDINGS: No discrete osseous erosion seen in either calcaneus. No fracture. There is a large soft tissue defect of the left heel. Extensive vascular calcifications are noted bilaterally. IMPRESSION: No specific radiographic evidence of calcaneal osteomyelitis bilaterally. An MRI may be performed for a more sensitive evaluation. Signed by: Jer Serrano MD on 10/26/2019 11:48 AM
[2019-10-26] MEDS: COLLAGENASE 5 GM TUBE TP SCH ×2 (12:00→16:19)
[2019-10-26] MEDS: POVIDONE IODINE 10% 120 ML BTL EXT SCH ×2 (12:00→16:19)
[2019-10-26] MEDS: HYDROCODONE/APAP 5MG-325MG TAB PO PRN (12:09)
--- NOTE | 2019-10-26 12:10 | NUR ---
WOUND CX OF LEFT FOOT RECEIVED BY LAB
--- NOTE | 2019-10-26 12:34 | Diagnostic Imaging Report ---
MRI of the left forefoot without contrast. History: Cellulitis. Osteomyelitis. Wound. Decreased range of motion. Technique: Multiplanar multisequence MRI of the hindfoot without contrast Comparison: Radiographs 10/25/2019 Findings: Abnormal skin ulceration/soft tissue defect at the posterior lateral aspect of the foot/heel on the plantar surface with associated abnormal adjacent soft tissue edema. No well-formed drainable fluid collection/abscess is seen in the region. There is underlying abnormal bone marrow edema and cortical erosion at the posterior inferior lateral calcaneus best seen on series 6 image 9 through 12. This is worrisome for osteomyelitis. Scattered degenerative changes are seen about the remaining visualized osseous structures. Diffuse muscle atrophy. No ligamentous or tendon tear. Physiologic amount of fluid in the ankle joint. Impression: Abnormal skin ulceration/soft tissue defect at the posterior lateral aspect of the foot/heel on the plantar surface with associated abnormal adjacent soft tissue edema. No well-formed drainable fluid collection/abscess is seen in the region. There is underlying abnormal bone marrow edema and cortical erosion at the posterior inferior lateral calcaneus best seen on series 6 image 9 through 12. This is worrisome for osteomyelitis. Signed by: Dr. Ozzy Frye M.D. on 10/26/2019 12:31 PM
--- NOTE | 2019-10-26 14:53 | Consultation ---
DATE OF CONSULTATION: REASON FOR CONSULTATION: The patient has infection of his foot. HISTORY OF PRESENT ILLNESS: This patient who is very pleasant 59-year-old male, comes in with left foot infection. The patient who does have underlying history of diabetes mellitus, hypertension, atherosclerotic disease, peripheral vascular disease, comes in with redness and swelling of his foot, which he had for a while. The patient denies history of trauma. The patient was admitted. Blood cultures obtained. Podiatry was consulted. LABORATORY DATA: White count 12.38, hemoglobin 9.2. His sodium 139, potassium 4.3 with creatinine 0.95. PHYSICAL EXAMINATION: GENERAL: He is currently alert, oriented, does not seem in acute distress. VITAL SIGNS: Stable, currently afebrile. HEENT: Not icteric. NECK: Supple. CHEST: Clear. HEART: S1 and S2. No S3, S4, or murmur. EXTREMITIES: Left foot and ankle, there is redness and swelling. An MRI was done. IMPRESSION: Left foot infection. MRI shows superficial skin infection and osteomyelitis. Agree with vancomycin. Agree with cefepime. Recommend also vascular workup. Obtain sedimentation rate, C-reactive protein. Obtain the PICC line. Arrange for 6 weeks of IV antibiotic. Follow vancomycin level, weekly CBC, weekly Chem panel. MD PATRIZIA Jett/TIMO /[id number]
[2019-10-26] MEDS: ENOXAPARIN SOD INJ 40 MG/0.4 ML SYR SC SCH (16:24)
--- NOTE | 2019-10-26 16:46 | NUR ---
Nutrition Screen Note RD Recommendation for Physician: - Continue current diet Plan of Care: RD following, monitoring for tolerance and adequacy - diet education materials provided 10/25 Nutrition reason for involvement: Nutrition Risk Trigger Primary Diagnose(s): cellulits of L lower limb, non-healing ulcer to L foot, DM2 PMH: IDDM, PAD, peripheral neuropathy, HTN Ht: 65 in Wt: 135 lb BMI: 22.5 kg/m2 IBW: [address] Assessment: (10/25) 59 YOM admitted for non healing ulcer to L foot, seen today per MST screen. Pt speaks very little Azeri, he was able to report good intake and no GI distress. No reported wt loss on admit. Pt provided with DM2 diet education materials in [place]an, pt with no questions regarding materials at time of visit. Chart reviewed. Labs and meds reviewed, BG in 200's- currently on Lispro. Will continue to monitor. Current Diet: 1800 ADA Malnutrition Evaluation (10/26/19) The patient does not meet criteria for a specified degree of malnutrition at this time. Will re-evaluate at follow-up as appropriate. Energy intake: No poor intake per RN, unable to obtain hx from pt Weight loss: none reported on admit per chart Fat loss: none, chest well developed Muscle loss: none, shoulder round Supporting Evidence: Fluid accumulation: none observed Functional Status: not assessed Diet Education Needs Assessment: Diet education indicated, pt provided with materials in Bel[place]an 10/25. Learner(s): pt Barriers: language, pt Bel[place]an speaking only Cultural/Language Modifications: materials provided in [place] Readiness: ready Method: handouts Topics: DM2 nutrition therapy Understanding/Compliance: unable to assess Diet tolerance: tolerating po Nutrition Care Level: low Signed: Ana Paulino RD, LD, [facility]
--- NOTE | 2019-10-26 17:14 | Consultation ---
DATE OF CONSULTATION: 10/26/2019 Cardiology consultation REQUESTING PHYSICIAN: Delores Poewll MD. REASON FOR CONSULTATION: Peripheral arterial disease. HISTORY OF PRESENT ILLNESS: This is a 59-year-old man with history of diabetes mellitus, hypertension, and hyperlipidemia, who presents with left foot wound. The patient reports this wound has been present for the last 3 weeks and he reports this wound has gradually improved. Denies any pain or swelling. Denies any chest pain, shortness breath, palpitations, or orthopnea. Cardiology is consulted for evaluation of peripheral arterial disease. REVIEW OF SYSTEMS: Negative except as per HPI. PAST MEDICAL HISTORY: 1. Diabetes mellitus. 2. HYPERTENSION. 3. Hyperlipidemia. PAST SURGICAL HISTORY: Back surgery. ALLERGIES: NO KNOWN DRUG ALLERGIES. MEDICATIONS: Please see medication list. SOCIAL HISTORY: Denies tobacco, alcohol, or illicit drugs. FAMILY HISTORY: Denies family history PHYSICAL EXAMINATION: VITAL SIGNS: Temperature 97.9 degrees, pulse 87 respiratory rate 20, blood pressure 119/71, and oxygen saturation 94% on room air. GENERAL: A well-developed well-nourished man. HEENT: Normocephalic, atraumatic. Pupils equal. No scleral icterus. NECK: Supple. No thyroid or cervical lymphadenopathy. No carotid bruits. LUNGS: Clear to auscultation bilaterally. No wheezes or crackles. CARDIOVASCULAR: Normal rate, regular rhythm. No murmur. Normal S1, S2. ABDOMEN: Soft, nontender. EXTREMITIES: No edema. Ulceration of the left heel with surrounding erythema and eschar. LABORATORY DATA: WBC 12.38, hemoglobin 9.2, hematocrit 28.3, and platelets 411. Sodium 139, potassium 4.3, chloride 106, CO2 of 24, BUN 17, and creatinine 0.95. MRI of the foot worrisome for osteomyelitis. IMPRESSION: 1. Left foot ulcer with osteomyelitis. 2. Diabetes mellitus. 3. Hypertension and hyperlipidemia. 4. Rule out peripheral arterial disease. RECOMMENDATIONS: We will obtain bilateral lower extremity arterial Doppler to evaluate for peripheral arterial disease. Antibiotics per Infectious Disease. Wound care per Podiatry. The patient's blood pressure is controlled. Continue home cardiac medications. Thank you for this consult. We will continue to follow. Cindy Mendez MD ABS/MODL /[id number]
--- NOTE | 2019-10-26 19:10 | NUR ---
Patient visited in room during nursing rounds. Patient alert and oriented x3. No distress or discomfort noted. Pt denies pain on left foot at this time. Ambulatory with standby assist prn. Pt on scheduled IV antibiotics. Wound on left foot open to air and elevated with pillow. Call leach within reach. Will monitor closely.
--- NOTE | 2019-10-26 19:23 | NUR ---
RESTING IN BED. AAOX3. ACYANOTIC. NO DISTRESS NOTED. REPORT RECEIVED BY ONCOMING NURSE.
--- NOTE | 2019-10-26 20:05 | History and Physical ---
CHIEF COMPLAINT: Left foot, heel necrosis and left heel pain. HISTORY OF PRESENT ILLNESS: The patient is a 59-year-old male, known type 2 diabetic, also history of CAD, and hypertension. He comes into the ED with complaints of 3-week history of left heel ulceration. The patient reports he noticed that about three weeks ago, it had progressively gotten worse. Reports having significant pain in the left foot. Denies any discharge. No cough, congestion, or any fever. No sick contacts. The patient came in for further evaluation and management. Podiatry, Cardiology and ID have been consulted. REVIEW OF SYSTEMS: Pertinent positive, left toe wound infection. The rest of 14-point review of systems are reviewed with the patient and are negative. ALLERGIES: NO KNOWN DRUG ALLERGIES. MEDICATIONS: 1. Glimepiride 2 mg p.o. b.i.d. 2. Metformin 850 mg p.o. t.i.d. 3. Actos 45 mg daily. 4. Lantus. 5. Amlodipine. 6. Atorvastatin. 7. Plavix. 8. Famotidine. 9. Lisinopril. PAST MEDICAL HISTORY: 1. Type 2 diabetes. 2. Hypertension. 3. CAD. 4. Diabetic foot ulcerations, peripheral neuropathy. PAST SURGICAL HISTORY: Reports none. FAMILY HISTORY: Hypertension and diabetes. SOCIAL HISTORY: No drugs or no alcohol. Does not smoke. Good social support. PHYSICAL EXAMINATION: VITAL SIGNS: Temperature is 98.3, pulse 94, respirations 19, blood pressure 107/55, pulse ox 98% on room air. GENERAL: Not in acute distress. Alert and oriented x3. Cooperative on examination. HEENT: Head; normocephalic, atraumatic. Eyes; pupils are equal, round, and reactive to light bilaterally. Extraocular movements intact bilaterally. Throat; no evidence of erythema or exudates in the posterior pharynx. Has poor dentition. NECK: Supple. Good range of motion. PULMONARY: Clear to auscultation bilaterally. No wheezing, no rales, no rhonchi, no crackles appreciated. CARDIOVASCULAR: Positive S1 and S2. No murmurs, rubs, or gallops appreciated. ABDOMEN: Soft, nondistended, and nontender to palpation. Bowel sounds present. MUSCULOSKELETAL: Strength is 5/5 throughout. No evidence of any muscle deficits on examination. No weakness appreciated. NEUROLOGIC: Cranial nerves 2 through 12 grossly intact. No evidence of any neurological deficits on exam. SKIN: Intact. Warm to touch. Good cap refill. PSYCHIATRIC: Normal affect and mood. EXTREMITIES: He does have a left heel ulceration, necrotic, warm to touch, erythematic. No discharge present. LABORATORY FINDINGS: White count 12.3, hemoglobin is 9.2, hematocrit 28.3, platelets 411. Chemistry; sodium was 139, potassium was 4.3, chloride is 106, bicarb 24, anion gap of 13, BUN was 17, creatinine was 0.95, glucose is 138, lactic acid 1.2, total bilirubin is 0.3, AST is 23, ALT 32. CRP was 127. Albumin was 3.1. MICROBIOLOGY: Blood cultures pending. Wound cultures pending. IMAGING STUDIES: Foot x-ray shows soft tissue ulceration in the left to with doses of radiographic findings of underlying osteomyelitis. Heel x-ray shows nonspecific radiographic evidence of calcaneal osteomyelitis bilaterally. MRI of the left foot shows abnormal skin ulceration and soft tissue defect at the posterior lateral aspect of the left heel with soft tissue edema. No well-formed drainable fluid collection after seen on region. There is underlying abnormal bone marrow edema and cortical erosion at the posterior inferior lateral calcaneus, concerning for underlying osteomyelitis. IMPRESSION: 1. Left heel wound infection, likely underlying osteomyelitis. 2. Peripheral arterial disease. 3. Type 2 diabetes, uncontrolled. 4. Hypertension. PLAN: At this time, MRI of the foot noted concerning for underlying osteomyelitis. X-rays are noted as well. Podiatry has been consulted. Local wound care has been provided. IV antibiotics have been ordered in which ID is also following. Wound cultures are pending. We also consulted with Cardiology, evaluate for arterial insufficiency, possibly further event of evaluation. Resume same home medications. Continue with sliding scale long-acting Lantus. Get a.m. labs. Put on Lovenox for DVT prophylaxis. Otherwise, we will continue to follow with all consultants Podiatry, Infectious Disease and Cardiology. MD SHARLENE Mckeon/TIMO /[id number]
[2019-10-27] VITALS (8 sets, daily range): BP systolic 115–134; BP diastolic 55–75
[2019-10-27 05:26] LABS: BASOPHILS # (AUTO) 0.1 (0.0-0.1); BASOPHILS % 0.5 % (0.0-1.0); EOSINOPHILS # (AUTO) 1.4 (0.0-0.4); EOSINOPHILS % 12.1 % (0.0-6.0); HEMATOCRIT 25.6 % (38.2-49.6); HEMOGLOBIN 8.3 g/dL (14.0-18.0); LYMPHOCYTES # (AUTO) 1.8 (1.0-3.2); LYMPHOCYTES % 15.4 % (18.0-39.1); MEAN CORPUSCULAR HEMOGLOBIN 27.9 pg (28-32); MEAN CORPUSCULAR HGB CONC 32.4 g/dL (31-35); MEAN CORPUSCULAR VOLUME 85.9 fL (81-99); MONOCYTES # (AUTO) 1.4 (0.2-0.8); MONOCYTES % 11.5 % (4.4-11.3); NEUTROPHILS # (AUTO) 7.1 (2.1-6.9); PLATELET COUNT 402 x10e3/uL (140-360); RED BLOOD COUNT 2.98 x10e6/uL (4.3-5.7); RED CELL DISTRIBUTION WIDTH 12.7 % (11.7-14.4)
[2019-10-27 05:48] LABS: ALANINE AMINOTRANSFERASE 32 IU/L (0-55); ALBUMIN 2.5 g/dL (3.5-5.0); ALBUMIN/GLOBULIN RATIO 0.6 (0.8-2.0); ALKALINE PHOSPHATASE 184 IU/L (40-150); ANION GAP 12.1 mmol/L (8-16); BLOOD UREA NITROGEN 12 mg/dL (7-26); BUN/CREATININE RATIO 15 (6-25); CALCIUM 8.9 mg/dL (8.4-10.2); CARBON DIOXIDE 25 mmol/L (22-29); CHLORIDE 103 mmol/L (98-107); CHOL/HDL RATIO 3.1 (3.9-4.7); CHOLESTEROL 110 MD/DL (0-199); EST GLOMERULAR FILTRATION RATE > 60 ML/MIN (60-); GLUCOSE 135 mg/dL (74-118); HDL CHOLESTEROL 35 MG/DL (40-60); LDL CHOLESTEROL 66 MG/DL (60-130); POTASSIUM 4.1 mmol/L (3.5-5.1); SODIUM 136 mmol/L (136-145); TRIGLYCERIDES 44 MG/DL (0-149)
[2019-10-27 06:08] LABS: THYROID STIMULATING HORMONE 1.805 uIU/mL (0.350-4.940)
[2019-10-27] MEDS: FAMOTIDINE 20 MG TAB PO SCH ×2 (08:49→18:19)
[2019-10-27] MEDS: ATORVASTATIN 40 MG TAB PO SCH (08:49)
[2019-10-27] MEDS: LISINOPRIL 20 MG TAB PO SCH (08:50)
[2019-10-27] MEDS: CLOPIDOGREL BISULFATE 75 MG TAB PO SCH (08:50)
[2019-10-27] MEDS: AMLODIPINE BESYLATE 10 MG TAB PO SCH (08:50)
[2019-10-27] MEDS: INSULIN LISPRO 100 UNIT/1 ML 3ML VIAL SQ SCH ×4 (08:53→22:02)
[2019-10-27] MEDS: HYDROCODONE/APAP 5MG-325MG TAB PO PRN (08:57)
--- NOTE | 2019-10-27 09:05 | NUR ---
DR. HALE HERE TO SEE PT ORDERS GIVEN.
--- NOTE | 2019-10-27 09:06 | Progress Note ---
DATE: 10/27/2019 SUBJECTIVE: The patient is seen at bedside. Relates he is doing better. Denies any history of fever, chills, nausea, or vomiting. OBJECTIVE: VITAL SIGNS: Afebrile, pulse rate 87, respirations 20, blood pressure 118/64, and O2 saturation 96%. LABORATORY DATA: Show white blood cell dropping to 11.7 from 12.3. Foul smell noted to the left lower extremity. Has a grade 3 ulceration with some drainage present. Decreased cellulitis. Pedal pulses are diminished. ASSESSMENT: Peripheral arterial disease, grade 3 ulcer with cellulitis and diabetic neuropathy. PLAN: We will continue IV antibiotics. Continue local wound care with diluted wet-to-dry Betadine and Santyl. Bedside debridement will possibly be done tomorrow. Awaiting vascular evaluation for possible vascular intervention secondary to his peripheral arterial disease. GUMARO Almonte/TIMO /[id number]
[2019-10-27] MEDS: CEFEPIME 1GM/NS 0.9% 50 ML 50 ML IV SCH ×2 (10:30→22:00)
[2019-10-27] MEDS: COLLAGENASE 5 GM TUBE TP SCH ×2 (12:27→17:24)
[2019-10-27] MEDS: POVIDONE IODINE 10% 120 ML BTL EXT SCH ×2 (12:27→17:24)
--- NOTE | 2019-10-27 16:12 | Progress Note ---
DATE: 10/27/2019 Medicine Progress Note SUBJECTIVE: The patient is doing well today with no complaints. Podiatry is scheduled to do a debridement tomorrow at bedside. PHYSICAL EXAMINATION: VITAL SIGNS: Temperature is 97, pulse 82, respiratory rate is 17, blood pressure 134/72, and pulse ox 95% on room air. GENERAL: Not in acute distress. Alert and oriented x3. Cooperative on examination. HEENT: Head; normocephalic, atraumatic. Eyes; pupils are equal, round, and reactive to light bilaterally. Extraocular movements intact bilaterally. Throat; no evidence of erythema or exudates in the posterior pharynx. Has poor dentition. NECK: Supple. Good range of motion. PULMONARY: Clear to auscultation bilaterally. No wheezing, no rales, no rhonchi, no crackles appreciated. CARDIOVASCULAR: Positive S1 and S2. No murmurs, rubs, or gallops appreciated. ABDOMEN: Soft, nondistended, and nontender to palpation. Bowel sounds present. MUSCULOSKELETAL: Strength is 5/5 throughout. No evidence of any muscle deficits on examination. No weakness appreciated. NEUROLOGIC: Cranial nerves 2 through 12 grossly intact. No evidence of any neurological deficits on exam. SKIN: Intact. Warm to touch. Good cap refill. PSYCHIATRIC: Normal affect and mood. EXTREMITIES: Right foot shows evidence of posterior left heel necrosis with underlying wound infection. LABORATORY FINDINGS: Show white count 11.7, hemoglobin 8.8, hematocrit is 25.6, and platelets of 402. Chemistry; sodium 136, potassium 4.1, chloride 103, bicarb 25, anion gap of 12, BUN is 20, and glucose is 135. LFTs within normal range. Alkaline phosphatase 184. Albumin is 2.5. LDL was 66. MICROBIOLOGY: Wound cultures no growth to date. Blood cultures no growth to date. IMAGING STUDIES: MRI of the foot on 10/26/2019, was consistent with osteomyelitis of the left foot. IMPRESSION: 1. Left heel wound infection, likely underlying osteomyelitis. 2. Peripheral arterial disease. 3. Type 2 diabetes, uncontrolled. 4. Hypertension. PLAN: At this time, MRI of the foot is noted to have underlying osteomyelitis. The PICC line has been ordered. The patient with a long-term IV antibiotics, awaiting for wound cultures. ID is following. Podiatry is scheduled to do a local bedside debridement. We will continue with same long-acting insulin as well as short-acting insulin. As for Cardiology, an arterial Doppler has been ordered to further evaluate and manage. We will continue same plan of care and monitor very closely. All consultants are available and discussed plan of care with them. MD SHARLENE Mckeon/TIMO /[id number]
[2019-10-27] MEDS: ENOXAPARIN SOD INJ 40 MG/0.4 ML SYR SC SCH (17:24)
--- NOTE | 2019-10-27 17:58 | Progress Note ---
DATE: 10/27/2019 SUBJECTIVE: The patient denies chest pain or shortness of breath. OBJECTIVE: VITAL SIGNS: Temperature 97 degrees, pulse 83, respiratory rate 17, blood pressure 134/72, and oxygen saturation 95% on room air. GENERAL: Awake, alert, in no acute distress. LUNGS: Clear to auscultation bilaterally. No wheezes or crackles. CARDIOVASCULAR: Normal rate. Regular rhythm. No murmur. Normal S1, S2. ABDOMEN: Soft. Nontender. EXTREMITIES: No edema. Ulceration of the left heel with surrounding erythema and eschar. CARDIAC MEDICATIONS: 1. Enoxaparin 40 mg subcu daily. 2. Lisinopril 40 mg p.o. daily. 3. Plavix 75 mg p.o. daily. 4. Amlodipine 10 mg p.o. daily. 5. Atorvastatin 40 mg p.o. daily. LABORATORY DATA: WBC 11.7, hemoglobin 8.3, hematocrit 25.6, and platelets 402. Sodium 136, potassium 4.1, chloride 103, CO2 of 25, BUN 12, and creatinine 0.8. IMPRESSION: 1. Left heel ulcer with osteomyelitis. 2. Diabetes mellitus. 3. Hypertension. 4. Hyperlipidemia. RECOMMENDATIONS: The patient's bilateral lower extremity arterial Doppler did not suggest hemodynamically significant stenosis. Antibiotics per Infectious Disease. Wound care per Podiatry, suspect the patient's wound is related to small vessel disease. Continue current cardiac medications. The patient's blood pressure is well controlled. We will continue to monitor. If his wound fails to improve, could consider CT angiogram of the abdomen and pelvis with lower extremity runoff for further evaluation. Thank you for this consult. We will continue to follow. Cindy Mendez MD ABS/MODL /[id number]
--- NOTE | 2019-10-27 19:10 | NUR ---
pt consent signed, for debridement and for picc line, insertion.
--- NOTE | 2019-10-27 19:20 | NUR ---
report given to oncoming nurse at this time, pt stable.
[2019-10-28] VITALS (8 sets, daily range): BP systolic 106–133; BP diastolic 60–71
--- NOTE | 2019-10-28 02:26 | Diagnostic Imaging Report ---
EXAMINATION: CHEST X-RAY LINE PLACEMENT COMPARISON: Chest x-ray 09/21/2018 INDICATION: ^PICC PLACEMENT DISCUSSION: Frontal view of the chest obtained at 0209 hours. HEART AND MEDIASTINUM: The heart is top normal in size and stable. LINES: Right PICC line terminates in the SVC. LUNGS: The lungs are well inflated. Trace bibasilar atelectasis. No edema. PLEURA: No pleural effusion or pneumothorax. BONES AND SOFT TISSUES: No focal osseous lesion. The soft tissues are normal. IMPRESSION: Right PICC line terminates in the SVC without pneumothorax. No acute cardiopulmonary process. Signed by: Dr. Sterling Queen MD on 10/28/2019 2:23 AM
[2019-10-28 07:25] LABS: BASOPHILS # (AUTO) 0.1 (0.0-0.1); BASOPHILS % 0.6 % (0.0-1.0); EOSINOPHILS # (AUTO) 1.3 (0.0-0.4); HEMATOCRIT 25.2 % (38.2-49.6); HEMOGLOBIN 8.2 g/dL (14.0-18.0); LYMPHOCYTES # (AUTO) 1.5 (1.0-3.2); LYMPHOCYTES % 13.9 % (18.0-39.1); MEAN CORPUSCULAR HEMOGLOBIN 28.5 pg (28-32); MEAN CORPUSCULAR HGB CONC 32.5 g/dL (31-35); MEAN CORPUSCULAR VOLUME 87.5 fL (81-99); MONOCYTES # (AUTO) 1.2 (0.2-0.8); MONOCYTES % 11.4 % (4.4-11.3); NEUTROPHILS # (AUTO) 6.5 (2.1-6.9); NEUTROPHILS % 61.7 % (38.7-80.0); PLATELET COUNT 393 x10e3/uL (140-360); RED BLOOD COUNT 2.88 x10e6/uL (4.3-5.7); RED CELL DISTRIBUTION WIDTH 12.6 % (11.7-14.4)
[2019-10-28] MEDS: INSULIN LISPRO 100 UNIT/1 ML 3ML VIAL SQ SCH ×4 (07:30→21:00)
[2019-10-28 07:39] LABS: ANION GAP 12.2 mmol/L (8-16); BLOOD UREA NITROGEN 13 mg/dL (7-26); BUN/CREATININE RATIO 18 (6-25); CALCIUM 8.7 mg/dL (8.4-10.2); CARBON DIOXIDE 25 mmol/L (22-29); CHLORIDE 104 mmol/L (98-107); CREATININE, SERUM 0.73 mg/dL (0.72-1.25); EST GLOMERULAR FILTRATION RATE > 60 ML/MIN (60-); GLUCOSE 105 mg/dL (74-118); POTASSIUM 4.2 mmol/L (3.5-5.1); SODIUM 137 mmol/L (136-145)
[2019-10-28] MEDS: FAMOTIDINE 20 MG TAB PO SCH ×2 (08:20→17:11)
[2019-10-28] MEDS: AMLODIPINE BESYLATE 10 MG TAB PO SCH (08:21)
[2019-10-28] MEDS: CLOPIDOGREL BISULFATE 75 MG TAB PO SCH (08:21)
[2019-10-28] MEDS: ATORVASTATIN 40 MG TAB PO SCH (08:21)
[2019-10-28] MEDS: LISINOPRIL 20 MG TAB PO SCH (08:22)
[2019-10-28] MEDS: CEFEPIME 1GM/NS 0.9% 50 ML 50 ML IV SCH ×2 (09:08→23:01)
[2019-10-28] MEDS: HYDROCODONE/APAP 5MG-325MG TAB PO PRN ×2 (09:08→17:28)
[2019-10-28] MEDS: POVIDONE IODINE 10% 120 ML BTL EXT SCH ×2 (09:08→17:04)
[2019-10-28] MEDS: COLLAGENASE 5 GM TUBE TP SCH ×2 (09:08→17:05)
--- NOTE | 2019-10-28 09:16 | Consultation ---
DATE OF CONSULTATION: 10/28/2019 SUBJECTIVE: The patient seen at bedside. Denying history of fever, chills, nausea, or vomiting. OBJECTIVE: VITAL SIGNS: Afebrile, pulse rate 81, respirations 18, blood pressure 126/66, O2 saturation 99%. LABORATORY DATA: Labs show white blood cell count dropping to 10.46. Has severe foul smell to the left lower extremity with a wound down to bone, but no osteomyelitic changes. Has some drainage and foul smell present. ASSESSMENT: Grade 3/4 ulceration, possible osteo with diabetic neuropathy and small-vessel disease with peripheral arterial disease. PLAN: Sharp excisional debridement, the ulcer was carried down to bone, devitalized tissue was sharply excised under no anesthesia secondary to his neuropathy. The wound was carried down to bleeding tissue. Santyl followed by diluted wet-to-dry Betadine was applied after the ulcer was debrided extensively at bedside. Following the debridement, the ulcer measured more than 6 x 4 cm in diameter. We will need local wound care IV antibiotics. Once the foul smell and infection clears, wound VAC will be ordered, deep cultures were taken for aerobic and anaerobic growth. GUMARO Almonte/TIMO /[id number]
--- NOTE | 2019-10-28 16:53 | Progress Note ---
DATE: 10/28/2019 Medicine Progress Note SUBJECTIVE: The patient underwent a left heel debridement today. He is otherwise doing much better now after post debridement. Debridement occurred at bedside. PHYSICAL EXAMINATION: VITAL SIGNS: Temperature is 98.2, pulse 81, respiratory rate is 17, blood pressure is 106/64, and pulse ox 98% on room air. GENERAL: Not in acute distress. Alert and oriented x3. Cooperative on examination. HEENT: Head; normocephalic, atraumatic. Eyes; pupils are equal, round, and reactive to light bilaterally. Extraocular movements intact bilaterally. Throat; no evidence of erythema or exudates in the posterior pharynx. Has poor dentition. NECK: Supple. Good range of motion. PULMONARY: Clear to auscultation bilaterally. No wheezing, no rales, no rhonchi, no crackles appreciated. CARDIOVASCULAR: Positive S1 and S2. No murmurs, rubs, or gallops appreciated. ABDOMEN: Soft, nondistended, and nontender to palpation. Bowel sounds present. MUSCULOSKELETAL: Strength is 5/5 throughout. No evidence of any muscle deficits on examination. No weakness appreciated. NEUROLOGIC: Cranial nerves 2 through 12 grossly intact. No evidence of any neurological deficits on exam. SKIN: Intact. Warm to touch. Good cap refill. PSYCHIATRIC: Normal affect and mood. EXTREMITIES: No edema. Good range of motion throughout. LABORATORY FINDINGS: Show white count 10.4, hemoglobin 8.2, hematocrit is 25, and platelets of 393. Chemistry; sodium 137, potassium 4.3, chloride 104, bicarb 25, anion gap of 12, BUN is 13, and creatinine is 0.73. MICROBIOLOGY: Blood cultures no growth to date. Wound cultures on admission still pending. Wound cultures from debridement today occurred this morning. IMAGING STUDIES: None. IMPRESSION: 1. Left heel wound infection, likely secondary to underlying osteomyelitis. 2. Peripheral arterial disease. 3. Type 2 diabetes, uncontrolled. 4. Hypertension. PLAN: At this time, the patient underwent debridement of the left heel today by Podiatry and wound cultures have been sent. Await for final wound cultures to determine IV antibiotic therapy. PICC line has been placed today on 10/28/2019. Once the wound cultures are back, we can determine the long-term IV antibiotic therapy. ID is following. I discussed this plan of care with the patient at bedside with the nurse present. He verbalized understanding. We are still waiting on the arterial Doppler report to be read. Cardiology is following as well. Actually of note reading Cardiology's note, arterial Doppler did not suggest hemodynamically significant stenosis, so less likely further workup needed by Cardiology. At this time, we just await for the wound cultures to determine long-term IV antibiotic therapy. Otherwise, we will continue same plan of care and monitor closely. MD SHARLENE Mckeon/MODL /[id number]
[2019-10-28] MEDS: ENOXAPARIN SOD INJ 40 MG/0.4 ML SYR SC SCH (17:11)
--- NOTE | 2019-10-28 18:33 | Progress Note ---
DATE: 10/28/2019 Cardiology Progress Note SUBJECTIVE: The patient denies chest pain or shortness of breath. OBJECTIVE: VITAL SIGNS: Temperature 98.2 degrees, pulse 81, respiratory rate 17, blood pressure 106/64, and oxygen saturation 98% on room air. GENERAL: Awake, alert, in no acute distress. LUNGS: Clear to auscultation bilaterally. No wheezes or crackles. CARDIOVASCULAR: Normal rate. Regular rhythm. No murmur. Normal S1 and S2. ABDOMEN: Soft and nontender. EXTREMITIES: No edema. Left heel with dressing intact. CARDIAC MEDICATIONS: Lisinopril 40 mg p.o. daily, atorvastatin 40 mg p.o. daily, Plavix 75 mg p.o. daily, and amlodipine 10 mg p.o. daily. LABORATORY DATA: WBC 10.46, hemoglobin 8.2, hematocrit 25.2, and platelets 393. Sodium 137, potassium 4.2, chloride 104, CO2 25, BUN 13, and creatinine 0.73. IMPRESSION: 1. Left heel ulcer with osteomyelitis. 2. Diabetes mellitus. 3. Hypertension. 4. Hyperlipidemia. RECOMMENDATIONS: The patient's bilateral lower extremity arterial Doppler did not suggest hemodynamically significant stenosis. Antibiotics per Infectious Disease. Wound care per Podiatry. Suspect the patient's wound is related to small vessel disease. Continue current cardiac medications. The patient's blood pressure is well controlled. Follow wound healing. If this fails to improve, could consider CT angiogram of the abdomen and pelvis with lower extremity runoff for further evaluation. Thank you for this consult. We will continue to follow. Cindy Mendez MD ABS/MODL /[id number]
--- NOTE | 2019-10-28 19:25 | NUR ---
walking rounds complete. pt stable at this time.
[2019-10-29] VITALS (8 sets, daily range): BP systolic 109–119; BP diastolic 54–74
--- NOTE | 2019-10-29 07:00 | NUR ---
BESIDE SHIFT REPORT RECEIVED FROM METHODS EXAMINER NURSE. PT DENIES NEEDS AT THIS TIME.
[2019-10-29] MEDS: INSULIN LISPRO 100 UNIT/1 ML 3ML VIAL SQ SCH ×4 (07:30→20:59)
[2019-10-29] MEDS: ATORVASTATIN 40 MG TAB PO SCH (09:15)
[2019-10-29] MEDS: FAMOTIDINE 20 MG TAB PO SCH ×2 (09:15→16:32)
[2019-10-29] MEDS: AMLODIPINE BESYLATE 10 MG TAB PO SCH (09:15)
[2019-10-29] MEDS: LISINOPRIL 20 MG TAB PO SCH (09:15)
[2019-10-29] MEDS: CLOPIDOGREL BISULFATE 75 MG TAB PO SCH (09:15)
[2019-10-29] MEDS: COLLAGENASE 5 GM TUBE TP SCH ×2 (09:51→21:04)
[2019-10-29] MEDS: POVIDONE IODINE 10% 120 ML BTL EXT SCH ×2 (09:51→21:04)
[2019-10-29] MEDS: HYDROCODONE/APAP 5MG-325MG TAB PO PRN ×2 (10:17→15:45)
[2019-10-29] MEDS: ENOXAPARIN SOD INJ 40 MG/0.4 ML SYR SC SCH (16:32)
--- NOTE | 2019-10-29 17:26 | Progress Note ---
DATE: SUBJECTIVE: The patient is doing well today with no complaints. He was standing at the edge of bed with no issues. Labs, none today. OBJECTIVE: VITAL SIGNS: Afebrile, normotensive, respiratory rate is good. GENERAL: Not in acute distress, alert, oriented x3. Cooperative on examination. HEENT: Head is normocephalic and atraumatic. Eyes, pupils are equal, round, and reactive to light bilaterally. Extraocular movements are intact. NECK: Supple. Good range of motion. Throat; no evidence of erythema or exudates in the posterior pharynx. Has poor dentition. PULMONARY: Clear to auscultation bilaterally. No wheezing, rales, rhonchi or crackles appreciated. CARDIOVASCULAR: Positive S1 and S2. No murmurs, rubs, or gallops. ABDOMEN: Soft, nondistended, and nontender to palpation. Bowel sounds present. MUSCULOSKELETAL: Strength is 5/5 throughout. No evidence of any muscle deficits on examination. No weakness appreciated. NEUROLOGIC: Cranial nerves 2 through 12 grossly intact. No evidence of any neurological deficits on exam. SKIN: Intact. Warm to touch. Good cap refill. PSYCHIATRIC: Normal affect and mood. EXTREMITIES: No edema. Good range of motion throughout. IMPRESSION: 1. Left heel wound infection likely secondary to underlying osteomyelitis. 2. Peripheral artery disease. 3. Type 2 diabetes, uncontrolled. PLAN: At this time, he underwent debridement of the left heel on 10/28/2019 by Podiatry. Wound cultures are pending. Continue with IV antibiotics. He has a PICC line on 10/28/2019 and ID is monitoring very closely. The patient will need wound VAC according to the nursing staff by Podiatry. Hopefully, we can get that arranged on Thursday. No further workup needed by Cardiology. Continue with same plan of care. Monitor closely. Local wound care. MD SHARLENE Mckeon/TIMO /[id number]
--- NOTE | 2019-10-29 19:30 | NUR ---
Received patient from day nurse, patient is stable. safety and fall precautions maintained at this time: bed in lowest position and lcoked, needed items beside bed and call leach placed close to patient, patient is currently stable will continue to monitor.
[2019-10-30] VITALS (7 sets, daily range): BP systolic 100–121; BP diastolic 59–64
[2019-10-30 06:21] LABS: BASOPHILS # (AUTO) 0.1 (0.0-0.1); BASOPHILS % 0.7 % (0.0-1.0); EOSINOPHILS # (AUTO) 1.1 (0.0-0.4); EOSINOPHILS % 12.4 % (0.0-6.0); HEMATOCRIT 25.3 % (38.2-49.6); HEMOGLOBIN 8.1 g/dL (14.0-18.0); LYMPHOCYTES # (AUTO) 1.3 (1.0-3.2); LYMPHOCYTES % 14.6 % (18.0-39.1); MEAN CORPUSCULAR HEMOGLOBIN 27.9 pg (28-32); MEAN CORPUSCULAR VOLUME 87.2 fL (81-99); MONOCYTES # (AUTO) 0.9 (0.2-0.8); MONOCYTES % 9.7 % (4.4-11.3); NEUTROPHILS # (AUTO) 5.5 (2.1-6.9); NEUTROPHILS % 62.1 % (38.7-80.0); PLATELET COUNT 380 x10e3/uL (140-360); RED CELL DISTRIBUTION WIDTH 12.7 % (11.7-14.4)
[2019-10-30 06:38] LABS: ANION GAP 11.2 mmol/L (8-16); BLOOD UREA NITROGEN 17 mg/dL (7-26); BUN/CREATININE RATIO 23 (6-25); CALCIUM 9.1 mg/dL (8.4-10.2); CARBON DIOXIDE 25 mmol/L (22-29); CHLORIDE 106 mmol/L (98-107); CREATININE, SERUM 0.73 mg/dL (0.72-1.25); EST GLOMERULAR FILTRATION RATE > 60 ML/MIN (60-); GLUCOSE 112 mg/dL (74-118); POTASSIUM 4.2 mmol/L (3.5-5.1); SODIUM 138 mmol/L (136-145)
--- NOTE | 2019-10-30 06:55 | NUR ---
patient endorsed to next shift for continuity of care.
--- NOTE | 2019-10-30 07:00 | NUR ---
BESIDE SHIFT REPORT RECEIVED FROM E [employer] DEVELOPER NURSE. PT DENIES NEEDS AT THIS TIME.
[2019-10-30] MEDS: FAMOTIDINE 20 MG TAB PO SCH ×2 (07:54→16:48)
[2019-10-30] MEDS: AMLODIPINE BESYLATE 10 MG TAB PO SCH (07:54)
[2019-10-30] MEDS: POVIDONE IODINE 10% 120 ML BTL EXT SCH ×2 (07:54→22:06)
[2019-10-30] MEDS: ATORVASTATIN 40 MG TAB PO SCH (07:54)
[2019-10-30] MEDS: LISINOPRIL 20 MG TAB PO SCH (07:55)
[2019-10-30] MEDS: CLOPIDOGREL BISULFATE 75 MG TAB PO SCH (07:55)
[2019-10-30] MEDS: COLLAGENASE 5 GM TUBE TP SCH ×2 (07:55→22:06)
[2019-10-30] MEDS: INSULIN LISPRO 100 UNIT/1 ML 3ML VIAL SQ SCH ×4 (07:56→22:05)
[2019-10-30] MEDS: VANCOMYCIN 1GM/NS 250 ML 250 ML IV SCH ×2 (10:28→22:08)
--- NOTE | 2019-10-30 14:34 | Progress Note ---
DATE: SUBJECTIVE: The patient has no complaints. He had a left heel injection secondary to osteomyelitis. He had a debridement of the heel on 10/28/2019. He is on IV antibiotics. The catheter was placed on 10/27 for the PICC line. His white blood count is trending down, it was 12.38, it is now 8.85. His neutrophils are also trending down and they are now within normal limits. Full-thickness ulcer to the plantar aspect of that heel, the ulcer is down to the level of the bones. No erythema, no edema, granular tissue at this point. ASSESSMENT: 1. Diabetic foot ulcer, grade 3. 2. Diabetes with neuropathy, peripheral vascular disease. PLAN: At this point, continue Santyl with diluted Betadine wet-to-dry. Continue offloading. Continue IV antibiotic, and continue local wound care. He is pending wound VAC and pending final cultures. GUMARO Chris/TIMO /[id number]
--- NOTE | 2019-10-30 16:24 | Progress Note ---
DATE: 10/30/2019 Medicine Progress Note SUBJECTIVE: The patient is doing well today with no complaints. No overnight events. LABORATORY DATA: Shows CBC within normal range, hemoglobin was 8.1. Chemistry was stable. MICROBIOLOGY: Wound cultures are still pending. Blood cultures, no growth to date. IMAGING STUDIES: None. PHYSICAL EXAMINATION: VITAL SIGNS: Afebrile, normotensive, respiratory rate is good. GENERAL: Not in acute distress. Oriented x3. Cooperative on examination. HEENT: Head normocephalic, atraumatic. Eyes, pupils equal, round and reactive to light bilaterally. Extraocular movements are intact. NECK: Supple. Good range of motion. Throat, no evidence of erythema or exudate in the posterior pharynx. Has poor dentition. PULMONARY: Clear to auscultation bilaterally. No wheezing, rales, rhonchi, or crackles appreciated. CARDIOVASCULAR: Positive S1 and S2. No murmurs, rubs, or gallops. ABDOMEN: Soft, nondistended, nontender to palpation. Bowel sounds present. MUSCULOSKELETAL: Strength is 5/5 throughout. No evidence of any muscle deficits on examination. SKIN: Intact. Warm to touch. Good cap refill. PSYCHIATRIC: Normal affect and mood. EXTREMITIES: His left foot heel debrided, currently wrapped with gauze. IMPRESSION: 1. Left heel wound infection, status post wound debridement with underlying osteomyelitis. 2. Peripheral arterial disease. 3. Type 2 diabetes, uncontrolled. PLAN: At this time, the patient had a left heel debridement on 10/28/2019 by Podiatry. Wound cultures are still pending to determine IV antibiotic therapy for home. He will likely need 6 weeks of IV antibiotics, but pending the culture, we will determine what is the antibiotic of choice. He does have a PICC line placed on 10/28/2019 and ID is following very closely. Once that is arranged, we will be able to discharge the patient home once cleared by the consultants and Case Management. MD SHARLENE Mckeon/TIMO /[id number]
[2019-10-30] MEDS: ENOXAPARIN SOD INJ 40 MG/0.4 ML SYR SC SCH (16:48)
--- NOTE | 2019-10-30 19:20 | NUR ---
Received patient from day nurse, patient is alert but confused, safety and fall precautions maintained as per hospital protocol: bed in lowest position and locked needed items beside and call light placed close to patient. Patient is currently stable will continue to monitor.
[2019-10-31] VITALS (8 sets, daily range): BP systolic 103–132; BP diastolic 63–73
--- NOTE | 2019-10-31 06:55 | NUR ---
Patient endorsed to next shift for continuity of care.
--- NOTE | 2019-10-31 08:30 | NUR ---
PT AWAKE AND ALERT. RESP EVEN WITHOUT DISTRESS. DENIES OF ANY PAIN.
[2019-10-31] MEDS: FAMOTIDINE 20 MG TAB PO SCH ×2 (08:43→17:10)
[2019-10-31] MEDS: ATORVASTATIN 40 MG TAB PO SCH (08:43)
[2019-10-31] MEDS: CLOPIDOGREL BISULFATE 75 MG TAB PO SCH (08:43)
[2019-10-31] MEDS: AMLODIPINE BESYLATE 10 MG TAB PO SCH (08:43)
[2019-10-31] MEDS: LISINOPRIL 20 MG TAB PO SCH (08:44)
[2019-10-31] MEDS: VANCOMYCIN 1GM/NS 250 ML 250 ML IV SCH ×2 (08:44→21:30)
[2019-10-31] MEDS: INSULIN LISPRO 100 UNIT/1 ML 3ML VIAL SQ SCH ×4 (09:34→21:00)
[2019-10-31] MEDS: POVIDONE IODINE 10% 120 ML BTL EXT SCH ×2 (11:00→21:05)
[2019-10-31] MEDS: COLLAGENASE 5 GM TUBE TP SCH ×2 (11:00→21:06)
--- NOTE | 2019-10-31 13:01 | NUR ---
Spoke with Dr. Andujar regarding outpatient IV abx. Order received and entered in system. Spoke to pt at bedside with JO-ANN Paez. Informed pt of need for 2 weeks of IV abx. Pt verbalized understanding. States daughter lives with him and should be able to assist with administering abx. Choice letter signed for [facility] for infusions. CM informed him that usually [facility] will set up home health or send one of their nurses to provide teaching and draw labs. Pt states he's agreeable with [facility] setting up home health with company in network with his insurance, if needed. Also discussed IMM letter. Pt verbalized understanding. [facility] copy of IMM and copy of choice letter given to pt. Signed choice letter and IMM placed in chart. Referral for IV abx faxed to [facility] at [phone] / P [phone].
--- NOTE | 2019-10-31 13:22 | NUR ---
Dr. Slim Chowdhury at bedside to change bandage to the left foot.
--- NOTE | 2019-10-31 13:52 | Progress Note ---
DATE: 10/31/2019 SUBJECTIVE: The patient at bedside, doing somewhat better. Denies any history of fever, chills, nausea, or vomiting. OBJECTIVE: VITAL SIGNS: Afebrile, pulse rate 86, respirations 17, blood pressure 118/70, and O2 saturation 97%. LABORATORY DATA: White blood cell count dropping to 8.8 and hemoglobin 8.1 with a platelet count of 380. Blood glucose of 178. Ulceration down to bone, some foul smell still present, more than 6 x 3 cm in diameter with bone exposed. ASSESSMENT: Osteomyelitis with a grade 4 ulcer, cellulitis with still some foul smell present with diabetic neuropathy and microvascular disease. PLAN: Dressing was changed. Santyl collagenase followed by diluted wet-to-dry Betadine was applied. We will continue IV antibiotics such as vancomycin. Labs noted and Gram stain positive for cocci in pairs. Sharp excisional debridement of the ulcer will be performed once again at bedside tomorrow. We will continue local wound care with Santyl followed by diluted wet-to-dry Betadine. The patient not ready to have a wound VAC just yet secondary to the infection and foul smell. GUMARO Almonte/TIMO /[id number]
--- NOTE | 2019-10-31 14:00 | NUR ---
DR. JACKSON AT BEDSIDE. NO ORDERS NOTED.
[2019-10-31] MEDS: ENOXAPARIN SOD INJ 40 MG/0.4 ML SYR SC SCH (17:10)
--- NOTE | 2019-10-31 18:00 | NUR ---
PT RESTING IN BED. RESP EVEN WITHOUT DISTRESS. DENIES OF ANY PAIN.
--- NOTE | 2019-10-31 22:03 | Progress Note ---
DATE: 10/31/2019 Medicine Progress Note SUBJECTIVE: The patient is doing well today with no complaints. I spoke with Podiatry. He is going to have a bedside debridement tomorrow with a wound VAC placement. No overnight events. PHYSICAL EXAMINATION: VITAL SIGNS: Temperature is 96.9, pulse 91, respiratory rate 17, blood pressure 107/66, pulse ox 99% on room air. GENERAL: No acute distress. Alert and oriented x3. Cooperative on examination. HEENT: Head is normocephalic and atraumatic. Eyes; pupils are equal, round, and reactive to light bilaterally. Extraocular movements intact. Throat; no evidence of erythema or exudates in the posterior pharynx. He has poor dentition. NECK: Supple. Good range of motion. PULMONARY: Clear to auscultation bilaterally. No wheezing, rales, or rhonchi. No crackles appreciated. CARDIOVASCULAR: Positive S1 and S2. No murmurs, rubs, or gallops appreciated. ABDOMEN: Soft, nondistended, nontender to palpation. Bowel sounds present. MUSCULOSKELETAL: Strength is 5/5 throughout. No evidence of any muscle deficits on examination. No weakness appreciated. NEUROLOGIC: Cranial nerve II through XII are grossly intact. No evidence of any neurological deficits on exam. SKIN: Intact. Warm to touch. Good cap refill. PSYCHIATRIC: Normal affect and mood. EXTREMITIES: No edema. Good range of motion throughout. Left heel status post debridement performed. LABORATORY FINDINGS: Show white count 8.8, hemoglobin 8.1, hematocrit 25, and platelets of 380. Chemistry reviewed and stable. MICROBIOLOGY: Blood cultures negative. Wound cultures so far no growth to date. IMAGING STUDIES: Noted. IMPRESSION: 1. Left heel wound infection, status post wound debridement with underlying osteomyelitis. 2. Peripheral arterial disease. 3. Type 2 diabetes, uncontrolled. PLAN: At this time, the patient had a left heel debridement on 10/28/2019, by Podiatry and he is scheduled to have debridement tomorrow at bedside with a wound VAC placement. Wound cultures are still pending, so far no growth to date. He will likely need 6 weeks of IV antibiotics and a PICC line has been inserted. Still pending final cultures growth. PICC line was placed on 10/28/2019, and ID is following very closely. Once everything is arranged, the patient can be discharged to home. Consultants involved are Cardiology, Podiatry, and ID. MD SHARLENE Mckeon/TIMO /[id number]
[2019-11-01] VITALS: BP 122/56
[2019-11-01 04:00] VITALS: BP 109/60
[2019-11-01 05:14] LABS: BASOPHILS # (AUTO) 0.1 (0.0-0.1); BASOPHILS % 0.6 % (0.0-1.0); EOSINOPHILS # (AUTO) 1.3 (0.0-0.4); EOSINOPHILS % 13.2 % (0.0-6.0); HEMATOCRIT 26.9 % (38.2-49.6); HEMOGLOBIN 8.4 g/dL (14.0-18.0); LYMPHOCYTES # (AUTO) 1.6 (1.0-3.2); LYMPHOCYTES % 16.5 % (18.0-39.1); MEAN CORPUSCULAR HEMOGLOBIN 27.5 pg (28-32); MEAN CORPUSCULAR HGB CONC 31.2 g/dL (31-35); MEAN CORPUSCULAR VOLUME 87.9 fL (81-99); MONOCYTES % 9.7 % (4.4-11.3); NEUTROPHILS # (AUTO) 5.8 (2.1-6.9); NEUTROPHILS % 59.5 % (38.7-80.0); PLATELET COUNT 403 x10e3/uL (140-360); RED BLOOD COUNT 3.06 x10e6/uL (4.3-5.7); RED CELL DISTRIBUTION WIDTH 12.7 % (11.7-14.4)
[2019-11-01 05:48] LABS: BLOOD UREA NITROGEN 14 mg/dL (7-26); BUN/CREATININE RATIO 18 (6-25); CARBON DIOXIDE 23 mmol/L (22-29); CHLORIDE 107 mmol/L (98-107); CREATININE, SERUM 0.78 mg/dL (0.72-1.25); EST GLOMERULAR FILTRATION RATE > 60 ML/MIN (60-); GLUCOSE 109 mg/dL (74-118); SODIUM 140 mmol/L (136-145)
[2019-11-01] MEDS: INSULIN LISPRO 100 UNIT/1 ML 3ML VIAL SQ SCH ×4 (07:30→21:00)
[2019-11-01 07:36] VITALS: BP 126/67
[2019-11-01] MEDS: POVIDONE IODINE 10% 120 ML BTL EXT SCH ×2 (09:00→21:00)
[2019-11-01] MEDS: COLLAGENASE 5 GM TUBE TP SCH ×2 (09:00→21:00)
[2019-11-01] MEDS: AMLODIPINE BESYLATE 10 MG TAB PO SCH (09:51)
[2019-11-01] MEDS: ATORVASTATIN 40 MG TAB PO SCH (09:51)
[2019-11-01] MEDS: CLOPIDOGREL BISULFATE 75 MG TAB PO SCH (09:51)
[2019-11-01] MEDS: FAMOTIDINE 20 MG TAB PO SCH ×2 (09:51→17:02)
[2019-11-01] MEDS: LISINOPRIL 20 MG TAB PO SCH (09:51)
[2019-11-01] MEDS: VANCOMYCIN 1GM/NS 250 ML 250 ML IV SCH ×2 (09:52→22:30)
[2019-11-01 11:17] VITALS: BP 127/62
--- NOTE | 2019-11-01 14:01 | NUR ---
Spoke with Doreen Vasquez with [facility]. States pt has accepted copay and that they are providing teaching to pt's spouse via facetime.
[2019-11-01 15:38] VITALS: BP 115/60
[2019-11-01] MEDS: HYDROCODONE/APAP 5MG-325MG TAB PO PRN (17:00)
[2019-11-01] MEDS: ENOXAPARIN SOD INJ 40 MG/0.4 ML SYR SC SCH (17:02)
--- NOTE | 2019-11-01 17:04 | NUR ---
dr quevedo here to debridement, pt tolerated well.
[2019-11-01] MEDS ORDERED: ONDANSETRON HCL 4 MG ORAL DISINTEGRATING TAB PO PRN (18:15)
--- NOTE | 2019-11-01 18:40 | NUR ---
pt left foot reinforced with kerlix.
--- NOTE | 2019-11-01 19:32 | Progress Note ---
DATE: 11/01/2019 SUBJECTIVE: The patient at bedside, in no distress. Denies any history of fever, chills, nausea, or vomiting. OBJECTIVE: VITAL SIGNS: Afebrile, pulse rate 84, respirations 21, blood pressure 115/60, O2 saturation 98%. LABORATORY DATA: Labs show a white blood cell count of 9.7, has foul smell with an ulceration down to bone. Bone exposed, measuring 8 x 4 cm in diameter. Some necrosis noted and foul smell present. ASSESSMENT: Grade 4 ulcer, osteomyelitis with pedal pulses diminished/microvascular disease. PLAN: Sharp excisional debridement of the ulcer was carried down to bone. Devitalized tissue sharply excised until good viable bleeding tissue achieved. Deep cultures were taken for aerobic and anaerobic growth. Sterile dressing was applied with Santyl followed by diluted wet-to-dry. We will continue local wound care once the foul smell goes away. Wound VAC will be applied to try to salvage foot and leg. GUMARO Almonte/TIMO /[id number]
--- NOTE | 2019-11-01 19:43 | NUR ---
walking rounds complete. report handed to oncoming nurse.
[2019-11-01 20:48] VITALS: BP 121/61
--- NOTE | 2019-11-01 21:48 | NUR ---
Dressing on left foot drenched with blood. Dressing reinforced with abdominal pads and Kerlix. Patient tolerated well. Will continue to monitor
--- NOTE | 2019-11-01 22:37 | Progress Note ---
DATE: 11/01/2019 Medicine Progress Note SUBJECTIVE: The patient is doing well today with no complaints. He is scheduled for left heel debridement again today by Podiatry. He may get a wound VAC as well. No overnight events. PHYSICAL EXAMINATION: VITAL SIGNS: Temperature 97.6, pulse 87, respiratory rate is 18, blood pressure 121/61, and pulse ox 98% on room air. GENERAL: Not in acute distress. Alert and oriented x3. Cooperative on examination. HEENT: Head; normocephalic, atraumatic. Eyes; pupils are equal, round, and reactive to light bilaterally. Extraocular movements intact bilaterally. Throat; no evidence of erythema or exudates in the posterior pharynx. Has poor dentition. NECK: Supple. Good range of motion. PULMONARY: Clear to auscultation bilaterally. No wheezing, no rales, no rhonchi, no crackles appreciated. CARDIOVASCULAR: Positive S1 and S2. No murmurs, rubs, or gallops appreciated. ABDOMEN: Soft, nondistended, and nontender to palpation. Bowel sounds present. MUSCULOSKELETAL: Strength is 5/5 throughout. No evidence of any muscle deficits on examination. No weakness appreciated. NEUROLOGIC: Cranial nerve II through XII grossly intact. No evidence of any neurological deficits on exam. SKIN: Intact. Warm to touch. Good cap refill. PSYCHIATRIC: Normal affect and mood. EXTREMITIES: Right heel foot grade 4 ulcer with debridement noted. LABORATORY DATA: Showed white count 9.7, hemoglobin 8.4, hematocrit 26.9, platelets of 403. Chemistry reviewed stable. MICROBIOLOGY: So far cultures were no growth to-date. IMAGING STUDIES: Nothing new. IMPRESSION: 1. Left heel wound infection, status post wound debridement with underlying osteomyelitis. 2. Peripheral artery disease. 3. Type 2 diabetes, uncontrolled. PLAN: At this time, the patient had debridement performed on 10/28/2019, and also had another debridement today on 11/01/2019, by Podiatry at bedside. Wound VAC will be placed, possibly today or maybe tomorrow based on Podiatry recommendations. Wound cultures are still pending. Further wound cultures have been sent to the lab. He will need 6 weeks of IV antibiotic and a PICC line has been inserted. PICC line placed on 10/28/2019. We will wait for the final growth and ID is following very closely. Once everything is arranged, the patient could be discharged to home soon. Consultants involved Cardiology, Podiatry, and ID. MD SHARLENE Mckeon/TIMO /[id number]
[2019-11-02] VITALS (9 sets, daily range): BP systolic 97–117; BP diastolic 55–66
[2019-11-02] MEDS: FAMOTIDINE 20 MG TAB PO SCH ×2 (08:16→16:16)
[2019-11-02] MEDS: INSULIN LISPRO 100 UNIT/1 ML 3ML VIAL SQ SCH ×4 (08:18→21:00)
[2019-11-02] MEDS: ATORVASTATIN 40 MG TAB PO SCH (08:56)
[2019-11-02] MEDS: CLOPIDOGREL BISULFATE 75 MG TAB PO SCH (08:57)
[2019-11-02] MEDS: LISINOPRIL 20 MG TAB PO SCH (08:58)
[2019-11-02] MEDS: VANCOMYCIN 1GM/NS 250 ML 250 ML IV SCH ×2 (08:59→21:30)
[2019-11-02] MEDS: AMLODIPINE BESYLATE 10 MG TAB PO SCH (08:59)
[2019-11-02] MEDS: POVIDONE IODINE 10% 120 ML BTL EXT SCH ×3 (09:00→21:32)
[2019-11-02] MEDS: COLLAGENASE 5 GM TUBE TP SCH ×3 (09:00→21:32)
--- NOTE | 2019-11-02 12:30 | NUR ---
1245 DR HALE AT BS, PREFORMED DRESSING CHANGE, WET TO DRY WITH SANTL, PT TOLERATED WELL
--- NOTE | 2019-11-02 13:14 | Progress Note ---
DATE: 11/02/2019 SUBJECTIVE: The patient at bedside, doing better, decreased pain to the left lower extremity. OBJECTIVE: VITAL SIGNS: Temperature of 100.2, pulse rate 85, respirations 19, blood pressure 97/55, and O2 saturation 96%. LABORATORY DATA: Show white blood cell count of 9.7. Wound culture still pending. Ulceration to the left lower extremity looks a little bit better, some granulation tissue noted, still some foul smell present. Bone exposed measuring at least 8 x 4 cm in diameter. ASSESSMENT: Grade 4 ulcer osteomyelitis, peripheral arterial disease with diabetic neuropathy. PLAN: We will continue IV antibiotics. Awaiting culture and sensitivity reports. Dressing was changed, Santyl followed by diluted wet-to-dry Betadine was applied. Continue offloading. We will continue to follow. GUMARO Almonte/TIMO /[id number]
--- NOTE | 2019-11-02 16:10 | NUR ---
Nutrition Screen Note RD Recommendation for Physician: - Continue current diet Plan of Care: RD following, monitoring for tolerance and adequacy Nutrition reason for involvement: follow up Primary Diagnose(s): cellulits of L lower limb, non-healing ulcer to L foot, DM2 PMH: IDDM, PAD, peripheral neuropathy, HTN Ht: 65 in Wt: 135 lb BMI: 22.5 kg/m2 IBW: [address] Assessment: (11/01) Follow up. Chart reviewed. Labs and meds reviewed. Pt had a wound debridement at bedside yesterday per MD note. It is noted that pt consumed 100% of meals yesterday. Will continue to monitor. (10/25) 59 YOM admitted for non healing ulcer to L foot, seen today per MST screen. Pt speaks very little Amharic, he was able to report good intake and no GI distress. No reported wt loss on admit. Pt provided with DM2 diet education materials in Prydeinig, pt with no questions regarding materials at time of visit. Chart reviewed. Labs and meds reviewed, BG in 200's- currently on Lispro. Will continue to monitor. Current Diet: 1800 ADA Malnutrition Evaluation (10/26/19) The patient does not meet criteria for a specified degree of malnutrition at this time. Will re-evaluate at follow-up as appropriate. Energy intake: No poor intake per RN, unable to obtain hx from pt Weight loss: none reported on admit per chart Fat loss: none, chest well developed Muscle loss: none, shoulder round Supporting Evidence: Fluid accumulation: none observed Functional Status: not assessed Diet Education Needs Assessment: Diet education indicated, pt provided with materials in Prydeinig 10/25. Learner(s): pt Barriers: language, pt Prydeinig speaking only Cultural/Language Modifications: materials provided in Prydeinig Readiness: ready Method: handouts Topics: DM2 nutrition therapy Understanding/Compliance: unable to assess Diet tolerance: tolerating po Nutrition Care Level: low Signed: Sangita Arisa, RD, LD
[2019-11-02] MEDS: ENOXAPARIN SOD INJ 40 MG/0.4 ML SYR SC SCH (16:17)
--- NOTE | 2019-11-02 18:55 | NUR ---
bedside report and care to adrienne iyn
--- NOTE | 2019-11-02 21:58 | Progress Note ---
DATE: 11/02/2019 Medicine Progress Note SUBJECTIVE: The patient is doing well today with no complaints. He did have a debridement of the left iliac today. According to the nursing staff, wound VAC was not placed as of yet and Podiatry would like to wait for another day or 2 before making that decision. LABORATORY DATA: Labs show white count was 9.7, hemoglobin 8.4, hematocrit 26.9, platelets of 403. CHEMISTRY: None today. MICROBIOLOGY: Wound cultures still show no growth to date. PHYSICAL EXAMINATION: VITAL SIGNS: Temperature is 97.8, T-max is 100.2, pulse 82, respirations 20, blood pressure is 106/60, pulse ox 97% on room air. GENERAL: Not in acute distress. Alert and oriented x3. Cooperative on examination. HEENT: Head; normocephalic, atraumatic. Eyes; pupils are equal, round, and reactive to light bilaterally. Extraocular movements intact bilaterally. Throat; no evidence of erythema or exudates in the posterior pharynx. Has poor dentition. NECK: Supple. Good range of motion. PULMONARY: Clear to auscultation bilaterally. No wheezing, no rales, no rhonchi, no crackles appreciated. CARDIOVASCULAR: Positive S1 and S2. No murmurs, rubs, or gallops appreciated. ABDOMEN: Soft, nondistended, and nontender to palpation. Bowel sounds present. MUSCULOSKELETAL: Strength is 5/5 throughout. No evidence of any muscle deficits on examination. No weakness appreciated. NEUROLOGIC: Cranial nerve 2 through 12 grossly intact. No evidence of any neurological deficits on exam. SKIN: Intact. Warm to touch. Good cap refill. PSYCHIATRIC: Normal affect and mood. EXTREMITIES: He does have a right heel debridement and also underlying osteomyelitis. IMPRESSION: 1. Left heel wound infection, status post wound debridement underlying osteomyelitis. 2. Peripheral artery disease. 3. Uncontrolled type 2 diabetes. PLAN: The patient had debridement on 10/28/2019 as well as on 11/01/2019 by Podiatry at bedside. Wound VAC was not placed yet. I am waiting on Podiatry recommendations on that. According to the nursing staff, he is waiting for the infection to clear before applying the wound VAC. Wound cultures are pending. Continue with IV antibiotics. PICC line in place. Six weeks of antibiotics. IV antibiotics are needed, being arranged by ID. Continue following with ID and Podiatry. Lovenox for DVT prophylaxis. CONSULTANTS INVOLVED: Cardiology, Podiatry, and ID. MD SHARLENE Mckeon/TIMO /[id number]
--- NOTE | 2019-11-02 22:00 | NUR ---
Patient refused dressing to left foot
--- NOTE | 2019-11-02 22:19 | NUR ---
Unable to contact Dr. Andujar. Dr. Powell notified of Vanco trough result. New orders received not to give tonight's dose. And rechecked Vanco trough before tomorrow's dose.
[2019-11-03] VITALS (9 sets, daily range): BP systolic 92–125; BP diastolic 55–89
--- NOTE | 2019-11-03 05:51 | NUR ---
PICC line dressing changed.
[2019-11-03] MEDS: FAMOTIDINE 20 MG TAB PO SCH ×2 (08:17→16:25)
[2019-11-03] MEDS: CLOPIDOGREL BISULFATE 75 MG TAB PO SCH (08:18)
[2019-11-03] MEDS: LISINOPRIL 20 MG TAB PO SCH (08:18)
[2019-11-03] MEDS: AMLODIPINE BESYLATE 10 MG TAB PO SCH (08:18)
[2019-11-03] MEDS: ATORVASTATIN 40 MG TAB PO SCH ×2 (09:00→21:58)
[2019-11-03] MEDS: INSULIN LISPRO 100 UNIT/1 ML 3ML VIAL SQ SCH ×4 (09:58→21:00)
[2019-11-03] MEDS: POVIDONE IODINE 10% 120 ML BTL EXT SCH ×2 (09:59→21:00)
[2019-11-03] MEDS: COLLAGENASE 5 GM TUBE TP SCH ×2 (09:59→21:00)
[2019-11-03] MEDS: VANCOMYCIN 750MG/NS 150ML IVPB 150 ML IV SCH ×2 (12:02→23:00)
[2019-11-03] MEDS ORDERED: SODIUM CHLORIDE 0.9% 250ML 250 ML ONE (12:12)
--- NOTE | 2019-11-03 19:22 | NUR ---
Patient received lying in bed. AAO x 3. Patient had no complaints of pain. No signs of respiratory distress. dressing to left heel CDI. Fall precautions implemented. patient instructed to call for assistance when needed. Call light within reach.
--- NOTE | 2019-11-03 22:07 | Progress Note ---
DATE: 11/03/2019 Medicine Progress Note SUBJECTIVE: The patient doing well today with no complaints. He is scheduled for debridement tomorrow of his left heel and further evaluation possibly even a wound VAC. PHYSICAL EXAMINATION: VITAL SIGNS: Temperature is 97.7, pulse 86, respiratory rate is 19, blood pressure is 118/70, and pulse ox 100% on room air. GENERAL: Not in acute distress. Alert and oriented x3. Cooperative on examination. HEENT: Head; normocephalic, atraumatic. Eyes; pupils are equal, round, and reactive to light bilaterally. Extraocular movements intact bilaterally. Throat; no evidence of erythema or exudates in the posterior pharynx. Has poor dentition. NECK: Supple. Good range of motion. PULMONARY: Clear to auscultation bilaterally. No wheezing, no rales, no rhonchi, no crackles appreciated. CARDIOVASCULAR: Positive S1 and S2. No murmurs, rubs, or gallops appreciated. ABDOMEN: Soft, nondistended, and nontender to palpation. Bowel sounds present. MUSCULOSKELETAL: Strength is 5/5 throughout. No evidence of any muscle deficits on examination. No weakness appreciated. NEUROLOGIC: Cranial nerves 2 through 12 grossly intact. No evidence of any neurological deficits on exam. SKIN: Intact. Warm to touch. Good cap refill. PSYCHIATRIC: Normal affect and mood. EXTREMITIES: Left lower extremity has been wrapped underlying debridement. LABORATORY DATA: Show white count 9.7, hemoglobin 9.5, hematocrit is 26.9, and platelets of 403. Chemistry, none today. MICROBIOLOGY: Blood cultures, no growth. Wound cultures , initially no growth. Repeat wound cultures showed no growth to date. IMAGING STUDIES: None. IMPRESSION: 1. Left heel wound infection, status post wound debridement with underlying osteomyelitis. 2. Peripheral arterial disease. 3. Uncontrolled type 2 diabetes. PLAN: The patient had debridement on 10/28/2019 and 11/01/2019 by Podiatry at bedside. Wound VAC has not been placed yet, as Podiatry is awaiting for one more additional day, hopefully tomorrow 11/04/2019, that a wound VAC will be placed. Wound cultures still pending. Continue with IV antibiotics. PICC line is in place. I spoke with case management. Six weeks of IV antibiotics has been arranged. We are just waiting on the final recommendations by Podiatry. Continue following with ID and Podiatry. Dandy for DVT prophylaxis. Consultants: Cardiology, Podiatry, and ID. MD SHARLENE Mckeon/MODL /[id number]
[2019-11-04] VITALS (8 sets, daily range): BP systolic 103–136; BP diastolic 63–76
--- NOTE | 2019-11-04 06:00 | NUR ---
Wound dressing performed per MD's orders. Patient tolerated well.
[2019-11-04 06:20] LABS: BASOPHILS # (AUTO) 0.1 (0.0-0.1); BASOPHILS % 0.8 % (0.0-1.0); EOSINOPHILS # (AUTO) 0.9 (0.0-0.4); EOSINOPHILS % 12.1 % (0.0-6.0); HEMATOCRIT 23.9 % (38.2-49.6); HEMOGLOBIN 7.6 g/dL (14.0-18.0); LYMPHOCYTES # (AUTO) 1.3 (1.0-3.2); LYMPHOCYTES % 16.5 % (18.0-39.1); MEAN CORPUSCULAR HEMOGLOBIN 27.8 pg (28-32); MEAN CORPUSCULAR HGB CONC 31.8 g/dL (31-35); MEAN CORPUSCULAR VOLUME 87.5 fL (81-99); MONOCYTES # (AUTO) 0.7 (0.2-0.8); MONOCYTES % 9.4 % (4.4-11.3); NEUTROPHILS # (AUTO) 4.7 (2.1-6.9); NEUTROPHILS % 60.6 % (38.7-80.0); PLATELET COUNT 333 x10e3/uL (140-360); RED BLOOD COUNT 2.73 x10e6/uL (4.3-5.7); RED CELL DISTRIBUTION WIDTH 12.8 % (11.7-14.4)
[2019-11-04 06:43] LABS: ANION GAP 11.1 mmol/L (8-16); BLOOD UREA NITROGEN 12 mg/dL (7-26); BUN/CREATININE RATIO 15 (6-25); CALCIUM 8.7 mg/dL (8.4-10.2); CARBON DIOXIDE 24 mmol/L (22-29); CHLORIDE 105 mmol/L (98-107); CREATININE, SERUM 0.81 mg/dL (0.72-1.25); EST GLOMERULAR FILTRATION RATE > 60 ML/MIN (60-); GLUCOSE 250 mg/dL (74-118); POTASSIUM 4.1 mmol/L (3.5-5.1); SODIUM 136 mmol/L (136-145)
--- NOTE | 2019-11-04 07:00 | NUR ---
Patient resting comfortably. Bed-side report given to oncoming nurse.
--- NOTE | 2019-11-04 08:46 | NUR ---
[facility] HINDS aware of Vancomycin trough 16.7. See orders
[2019-11-04] MEDS: INSULIN LISPRO 100 UNIT/1 ML 3ML VIAL SQ SCH ×4 (09:04→20:36)
[2019-11-04] MEDS: FAMOTIDINE 20 MG TAB PO SCH ×2 (09:04→16:58)
[2019-11-04] MEDS: CLOPIDOGREL BISULFATE 75 MG TAB PO SCH (09:06)
[2019-11-04] MEDS: LISINOPRIL 20 MG TAB PO SCH (09:06)
[2019-11-04] MEDS: POVIDONE IODINE 10% 120 ML BTL EXT SCH ×2 (11:15→20:42)
[2019-11-04] MEDS: VANCOMYCIN HCL 1.25 GM in SODIUM CHLORIDE 0.9% 250ML 250 ML IV SCH (11:15)
[2019-11-04] MEDS: COLLAGENASE 5 GM TUBE TP SCH ×2 (11:15→21:00)
[2019-11-04] MEDS: AMLODIPINE BESYLATE 10 MG TAB PO SCH (11:34)
--- NOTE | 2019-11-04 11:36 | NUR ---
Updated IV abx order and labs faxed to [facility] at [phone] / P [phone]. Doreen with [facility] was updated.
--- NOTE | 2019-11-04 14:42 | NUR ---
Spoke with Dr. Powell. He ordered SNF eval. States pt would need wound care and close monitoring of wound. States would like for [facility] worker to re-eval wound. Will keep pt over the weekend and anticipate discharge to SNF on Thursday. CM updated Doreen with [facility] of new order for SNF.
--- NOTE | 2019-11-04 15:54 | NUR ---
FAXED CLINICALS TO [facility] FOR SNF, WILL NEED PASRR AND COVID FORM PRIOR TO DISCHARGE FAXED TO COMPLETE THE REFERRAL WITH THE RTF FOR PACKET.
--- NOTE | 2019-11-04 17:10 | Progress Note ---
DATE: 11/04/2019 SUBJECTIVE: The patient was seen at bedside. Denies any history of fever, chills, nausea, vomiting decreased pain to the left lower extremity. OBJECTIVE: VITAL SIGNS: Afebrile, pulse rate 83, respirations 20, blood pressure 109/64, O2 saturation 96%. LABORATORY DATA: Labs show white blood cell count dropping to 7.7, hemoglobin 7.6 with a platelet count of 333. Ulceration to the left lower extremity continues to heal very slowly. Still some foul smell present with bone exposed more than 8 x 4 cm in diameter. Some necrosis noted, but getting better very slowly. Pedal pulses are palpable. Skin temperature is warm to touch on this date. ASSESSMENT: Grade 4 ulcer, osteomyelitis with microvascular disease with very slow healing ulceration. PLAN: The patient will need IV antibiotics for the next 6 to 8 weeks. We will continue local wound care. The patient understands if not responsive may end up losing part of his foot or even his leg. GUMARO Almonte/TIMO /[id number]
--- NOTE | 2019-11-04 18:55 | NUR ---
Report given to oncoming nurse of patient's status. Resting in bed. No s/s of acute distress noted. Side rails upx2, call light within reach.
--- NOTE | 2019-11-04 19:15 | NUR ---
Patient received lying in bed. AAO x 3. No acute distress noted. Bed locked and in lowest position. Bed rails up x 2. Call light within reach.
[2019-11-04] MEDS: ATORVASTATIN 40 MG TAB PO SCH (20:43)
--- NOTE | 2019-11-04 21:56 | Progress Note ---
DATE: 11/04/2019 Medicine progress note SUBJECTIVE: The patient is doing well today. His left foot still has areas of necrosis according to the nursing staff and ID. I spoke with podiatry, recommends transferring to a correction facility for discharge. Continue with aggressive IV antibiotic therapy. The patient is in agreement to correction facility. PHYSICAL EXAMINATION: VITAL SIGNS: Temperature is 97.1, pulse 86 respiratory rate is 20, blood pressure is 136/68, pulse ox 98% on room air. GENERAL: Not in acute distress. Alert and oriented x3. Cooperative on examination. HEENT: Head is normocephalic, atraumatic. Eyes; pupils are equal, round, and reactive to light bilaterally. Extraocular movements intact bilaterally. Throat; no evidence of erythema or exudates in the posterior pharynx. Has poor dentition. NECK: Supple. Good range of motion. PULMONARY: Clear to auscultation bilaterally. No wheezing, no rales, no rhonchi. No crackles appreciated. CARDIOVASCULAR: Positive S1, S2. No murmurs, rubs or gallops appreciated. ABDOMEN: Soft, nondistended, and nontender to palpation. Bowel sounds present. MUSCULOSKELETAL: Strength is 5/5 throughout. No evidence of any muscle deficits on examination. No weakness appreciated. NEUROLOGIC: Cranial nerves II through XII grossly intact. No evidence of any neurological deficits on exam. SKIN: Intact. Warm to touch. Good cap refill. PSYCHIATRIC: Normal affect and mood. EXTREMITIES: His left heel is currently wrapped up, apparently described as bone is exposed 8 x 4 cm in diameter with some necrosis noted. LABORATORY DATA: Labs show white count 7.7, hemoglobin 7.6, hematocrit 24, platelets of 333. Chemistry; sodium 136, potassium 4.1, chloride 105, bicarb 24, anion gap of 11, BUN is 12, creatinine 0.81. Glucose point of care is 168, calcium 8.7. MICROBIOLOGY: All cultures so far have found to be negative. IMPRESSION: 1. Grade 4 ulcer osteomyelitis with microvascular disease with slow healing ulceration. 2. Left heel wound infection with osteomyelitis. 3. Peripheral arterial disease. 4. Uncontrolled type 2 diabetes. PLAN: At this time. Debridement occurred on 10/28/2019 and 11/01/2019 by Podiatry at bedside. I spoke with Podiatry today by phone. He recommends sending the patient to a correction facility with IV antibiotics for 6-8 weeks. He recommends also local wound care. At this time, he does not feel like the patient needs a wound VAC, but instead at some point, he will at the correction facility. He will monitor the wound throughout the weekend, he will make a decision about a wound VAC on Thursday and move from there. Continue with IV antibiotics. Wound care daily. Wound cultures, no growth. PICC line is in place. I also spoke with ID and they will continue with aggressive IV antibiotic therapy while here and as well as at the skilled level. Consultants; Podiatry and ID. Lovenox for DVT prophylaxis. MD SHARLENE Mckeon/TIMO /[id number]
[2019-11-05] VITALS (8 sets, daily range): BP systolic 107–131; BP diastolic 58–68
--- NOTE | 2019-11-05 07:02 | NUR ---
Patient resting comfortably, Walking rounds done. Shift report given to oncoming nurse regarding patient's status.
[2019-11-05] MEDS: INSULIN LISPRO 100 UNIT/1 ML 3ML VIAL SQ SCH ×4 (07:42→21:00)
[2019-11-05] MEDS: FAMOTIDINE 20 MG TAB PO SCH ×2 (07:42→16:26)
[2019-11-05] MEDS: POVIDONE IODINE 10% 120 ML BTL EXT SCH ×2 (09:27→21:00)
[2019-11-05] MEDS: CLOPIDOGREL BISULFATE 75 MG TAB PO SCH (09:28)
[2019-11-05] MEDS: COLLAGENASE 5 GM TUBE TP SCH ×2 (09:28→21:00)
[2019-11-05] MEDS: LISINOPRIL 20 MG TAB PO SCH (09:28)
[2019-11-05] MEDS: AMLODIPINE BESYLATE 10 MG TAB PO SCH (09:28)
[2019-11-05] MEDS: VANCOMYCIN HCL 1.25 GM in SODIUM CHLORIDE 0.9% 250ML 250 ML IV SCH ×2 (11:38→15:01)
[2019-11-05] MEDS ORDERED: ALTEPLASE RECOMBINANT 2 MG/2 ML VIAL IV ONE (12:45)
--- NOTE | 2019-11-05 16:15 | Progress Note ---
DATE: SUBJECTIVE: Mr. Davidson is doing quite well. The patient who remains in the hospital, awaiting discharge planning. His left foot with necrotic tissue still. REVIEW OF SYSTEMS: HEENT: Negative. PULMONARY: Negative. CARDIAC: Negative. PHYSICAL EXAMINATION: GENERAL: He is currently alert, oriented, does not seem in acute distress. VITAL SIGNS: Stable, afebrile. HEENT: He is not icteric. NECK: Supple. CHEST: Clear. HEART: S1-S2, no murmurs. ABDOMEN: Soft, bowel sounds present. EXTREMITIES: No edema. The foot dressing is clean and he has left foot heel ulcer. LABORATORY DATA: White count 7.7, hemoglobin 7.6. His sodium 136, potassium 4.4, creatinine 0.81. IMPRESSION: Left heel wound, osteomyelitis, severe peripheral vascular disease, diabetes mellitus with neuropathy. The patient is at risk for [id number] amputation. RECOMMENDATIONS: Continue with intravenous antibiotic. He is currently on vancomycin. The plan is to arrange outpatient antibiotic plus wound care. Podiatry is following, they recommending multiple debridement, but the patient is at risk for [id number] amputation and we will follow. MD PATRIZIA Jett/TIMO /[id number]
--- NOTE | 2019-11-05 18:10 | Progress Note ---
DATE: 11/05/2019 Medicine Progress Note SUBJECTIVE: The patient is doing well today with no complaints. His left foot heel still shows evidence of necrosis, but Podiatry wants the patient to go to [facility] facility, which we are in the process of arranging possibly on Thursday. The patient will need 6 to 8 weeks of IV antibiotic therapy. PHYSICAL EXAMINATION: VITAL SIGNS: Temperature is 97.3, pulse is 78, respirations 18, blood pressure 112/62, pulse ox 100% on room air. GENERAL: No acute distress, alert and oriented x3, cooperative on examination. HEENT: Head is normocephalic, atraumatic. Eyes; pupils are equal and reactive to light bilaterally. Extraocular movements intact bilaterally. NECK: Supple. Good range of motion. Throat; no evidence of erythema or exudates in the posterior pharynx. He has poor dentition. PULMONARY: Clear to auscultation bilaterally. No wheezing, rales, or rhonchi. No crackles appreciated. CARDIOVASCULAR: Positive S1 and S2. No murmurs, rubs, or gallops appreciated. ABDOMEN: Soft, nondistended, and nontender to palpation. Bowel sounds are present. MUSCULOSKELETAL: Strength is 5/5 throughout. No evidence of any muscle deficits on examination. No weakness appreciated. NEUROLOGIC: Cranial nerves II through XII grossly intact. No evidence of any neurological deficits on exam. SKIN: Intact. Warm to touch. Good cap refill. PSYCHIATRIC: Normal affect and mood. EXTREMITIES: No edema. Good range of motion throughout. Left heel wound with underlying necrosis currently wrapped. LABORATORY DATA: Showed white count 7.7, hemoglobin 7.6, hematocrit is 24, platelets of 333. Chemistry, none. Microbiology; so far no growth to date on blood cultures, wound cultures, no growth to date. IMPRESSION: 1. Grade 4 ulcer osteomyelitis with microvascular disease with slow healing ulceration. 2. Left heel wound infection with osteomyelitis. 3. Peripheral arterial disease. 4. Uncontrolled type 2 diabetes. PLAN: At this time, he is currently has a wrapping on his left heel. Debridement occurred on 10/27 and 11/01/2019 by Podiatry at bedside. I spoke with Podiatry on yesterday. Recommend [facility] facility with local wound care as well as IV antibiotics for 6 to 8 weeks. I also discussed this with ID and agrees to plan of care. At this time, the patient will be through weekend. Plan to discharge to [facility] facility hopefully on Thursday. Continue with same plan of care. Get a.m. labs. Consultants Podiatry and ID. Dorman for DVT prophylaxis. MD SHARLENE Mckeon/MODL /[id number]
--- NOTE | 2019-11-05 19:25 | NUR ---
Patient received sitting up in bed. AAO x 3. No complaints of pain or discomfort. No signs of respiratory distress. Safety measures in place. Call light within reach.
[2019-11-05] MEDS: ATORVASTATIN 40 MG TAB PO SCH (21:22)
[2019-11-06] VITALS (8 sets, daily range): BP systolic 92–139; BP diastolic 52–69
--- NOTE | 2019-11-06 04:35 | NUR ---
Wound dressing performed per MD's order. Patient tolerated well.
[2019-11-06 06:32] LABS: BASOPHILS # (AUTO) 0.1 (0.0-0.1); BASOPHILS % 0.8 % (0.0-1.0); EOSINOPHILS # (AUTO) 0.7 (0.0-0.4); EOSINOPHILS % 9.7 % (0.0-6.0); HEMATOCRIT 24.7 % (38.2-49.6); HEMOGLOBIN 7.7 g/dL (14.0-18.0); LYMPHOCYTES # (AUTO) 1.6 (1.0-3.2); LYMPHOCYTES % 20.8 % (18.0-39.1); MEAN CORPUSCULAR HEMOGLOBIN 27.3 pg (28-32); MEAN CORPUSCULAR HGB CONC 31.2 g/dL (31-35); MEAN CORPUSCULAR VOLUME 87.6 fL (81-99); MONOCYTES # (AUTO) 0.7 (0.2-0.8); MONOCYTES % 9.4 % (4.4-11.3); NEUTROPHILS # (AUTO) 4.5 (2.1-6.9); PLATELET COUNT 341 x10e3/uL (140-360); RED BLOOD COUNT 2.82 x10e6/uL (4.3-5.7)
--- NOTE | 2019-11-06 06:50 | NUR ---
Shift report given to oncoming nurse regarding patient's status. Patient in stable condition.
[2019-11-06 07:05] LABS: ANION GAP 11.3 mmol/L (8-16); BLOOD UREA NITROGEN 12 mg/dL (7-26); BUN/CREATININE RATIO 16 (6-25); CALCIUM 8.8 mg/dL (8.4-10.2); CARBON DIOXIDE 26 mmol/L (22-29); CHLORIDE 106 mmol/L (98-107); CREATININE, SERUM 0.77 mg/dL (0.72-1.25); EST GLOMERULAR FILTRATION RATE > 60 ML/MIN (60-); GLUCOSE 128 mg/dL (74-118); POTASSIUM 4.3 mmol/L (3.5-5.1); SODIUM 139 mmol/L (136-145)
[2019-11-06] MEDS: INSULIN LISPRO 100 UNIT/1 ML 3ML VIAL SQ SCH ×4 (07:30→21:00)
[2019-11-06] MEDS: FAMOTIDINE 20 MG TAB PO SCH ×2 (07:38→16:37)
[2019-11-06] MEDS: LISINOPRIL 20 MG TAB PO SCH (07:39)
[2019-11-06] MEDS: AMLODIPINE BESYLATE 10 MG TAB PO SCH (07:39)
[2019-11-06] MEDS: CLOPIDOGREL BISULFATE 75 MG TAB PO SCH (09:40)
[2019-11-06] MEDS: POVIDONE IODINE 10% 120 ML BTL EXT SCH ×2 (14:29→21:12)
[2019-11-06] MEDS: COLLAGENASE 5 GM TUBE TP SCH ×2 (14:29→21:12)
[2019-11-06] MEDS ORDERED: VANCOMYCIN HCL 1.25 GM in SODIUM CHLORIDE 0.9% 250ML 250 ML IV SCH (15:00)
--- NOTE | 2019-11-06 15:27 | Consultation ---
DATE OF CONSULTATION: 11/06/2019 SUBJECTIVE: The patient at bedside, doing somewhat better. Denies any history of fever, chills, nausea, or vomiting. Decreased pain to the left lower extremity. OBJECTIVE: VITAL SIGNS: Afebrile. Vital signs are stable. Dressing dry and intact. CFT to all toes less than 4 seconds. Skin temperature warm to touch. There is decreased foul smell through the dressing. ASSESSMENT: 1. Grade 4 ulcer. 2. Osteomyelitis. 3. Microvascular disease with cellulitis. PLAN: Continue IV antibiotics. Continue local wound care. Continue offloading. We will continue to follow. The patient may be transferred to [facility] for continued IV for the next 4-6 weeks. GUMARO Almonte/TIMO /[id number]
--- NOTE | 2019-11-06 18:32 | Progress Note ---
DATE: 11/06/2019 Medicine Progress Note SUBJECTIVE: The patient is doing well today with no complaints. No overnight events. LABORATORY DATA: Shows white count 7.5, hemoglobin 7.7, hematocrit 24.7, platelets of 341. Chemistry, sodium 139, potassium 4.3, chloride 106, bicarb 26, anion gap of 11. BUN is 12, creatinine 0.77, calcium is 8.8. MICROBIOLOGY: Nothing is positive, though negative to date. PHYSICAL EXAMINATION: VITAL SIGNS: Temperature is 96.8, pulse 83, respiratory rate is 20, blood pressure 103/55, pulse ox 99% on room air. GENERAL: No acute distress, alert and oriented x3, cooperative on examination. HEENT: Head is normocephalic, atraumatic. Eyes; pupils are equal and reactive to light bilaterally. Extraocular movements intact bilaterally. NECK: Supple. Good range of motion. Throat; no evidence of erythema or exudates in the posterior pharynx. He has poor dentition. PULMONARY: Clear to auscultation bilaterally. No wheezing, rales, or rhonchi. No crackles appreciated. CARDIOVASCULAR: Positive S1 and S2. No murmurs, rubs, or gallops appreciated. GI: Abdomen is soft, nondistended, and nontender to palpation. Bowel sounds are present. MUSCULOSKELETAL: Strength is 5/5 throughout. No evidence of any muscle deficits on examination. No weakness appreciated. NEUROLOGIC: Cranial nerves II through XII grossly intact. No evidence of any neurological deficits on exam. SKIN: Intact. Warm to touch. Good cap refill. PSYCHIATRIC: Normal affect and mood. EXTREMITIES: No edema. Good range of motion throughout. IMPRESSION: 1. Grade 4 ulcer with osteomyelitis with microvascular disease with slow healing ulceration. 2. Left heel wound infection with osteomyelitis. 3. Peripheral artery disease. 4. Uncontrolled type 2 diabetes. PLAN: At this time, his left heel is well wrapped. He had debridement performed on 10/28/2019 and 11/01/2019 by Podiatry at bedside. I spoke with Podiatry. They have recommended IV antibiotics for at least 6 to 8 weeks. I spoke with ID. I agree with plan of care. Plan is to discharge to [facility] facility hopefully on Thursday. Get a.m. labs. Consult podiatry and ID. Dandy for DVT prophylaxis. MD SHARLENE Mckeon/TIMO /[id number]
[2019-11-06] MEDS: ATORVASTATIN 40 MG TAB PO SCH (21:12)
[2019-11-07 00:37] VITALS: BP 128/64
[2019-11-07 04:44] VITALS: BP 109/64
[2019-11-07 05:19] LABS: BASOPHILS # (AUTO) 0.1 (0.0-0.1); BASOPHILS % 0.8 % (0.0-1.0); EOSINOPHILS # (AUTO) 0.7 (0.0-0.4); EOSINOPHILS % 9.6 % (0.0-6.0); HEMATOCRIT 23.9 % (38.2-49.6); HEMOGLOBIN 7.5 g/dL (14.0-18.0); LYMPHOCYTES # (AUTO) 1.6 (1.0-3.2); LYMPHOCYTES % 22.2 % (18.0-39.1); MEAN CORPUSCULAR HEMOGLOBIN 27.6 pg (28-32); MEAN CORPUSCULAR HGB CONC 31.4 g/dL (31-35); MEAN CORPUSCULAR VOLUME 87.9 fL (81-99); MONOCYTES # (AUTO) 0.8 (0.2-0.8); MONOCYTES % 11.2 % (4.4-11.3); NEUTROPHILS # (AUTO) 3.9 (2.1-6.9); NEUTROPHILS % 55.9 % (38.7-80.0); PLATELET COUNT 316 x10e3/uL (140-360); RED BLOOD COUNT 2.72 x10e6/uL (4.3-5.7)
[2019-11-07 05:40] LABS: BLOOD UREA NITROGEN 12 mg/dL (7-26); BUN/CREATININE RATIO 16 (6-25); CALCIUM 8.9 mg/dL (8.4-10.2); CARBON DIOXIDE 25 mmol/L (22-29); CHLORIDE 106 mmol/L (98-107); CREATININE, SERUM 0.76 mg/dL (0.72-1.25); EST GLOMERULAR FILTRATION RATE > 60 ML/MIN (60-); GLUCOSE 151 mg/dL (74-118); SODIUM 139 mmol/L (136-145)
--- NOTE | 2019-11-07 06:40 | NUR ---
Wound dressing performed to left foot per MD's orders. Patient tolerated well.
--- NOTE | 2019-11-07 06:55 | NUR ---
Patient resting comfortably. Bed-side report given to oncoming nurse regarding patient's status. Call light within reach.
--- NOTE | 2019-11-07 07:00 | NUR ---
BEDSIDE SHIFT REPORT RECEIVED FROM THE DEPUTY HEAD RN. CALL LIGHT WITH IN EASY REACH. INSTRUCTED PT TO USE CALL LIGHT FOR ALL THE NEEDS. EDUCATED PT ABOUT FALL PRECAUTIONS. PT VERBALIZED UNDERSTANDING. BED IS LOW AND LOCKED. SIDE RAILS X2. BED ALARM IS ON. PT DENIES NEEDS AT THIS TIME.
[2019-11-07 08:00] VITALS: BP 130/69
[2019-11-07] MEDS: INSULIN LISPRO 100 UNIT/1 ML 3ML VIAL SQ SCH ×3 (08:00→17:30)
[2019-11-07] MEDS: FAMOTIDINE 20 MG TAB PO SCH ×2 (08:03→17:36)
[2019-11-07] MEDS: AMLODIPINE BESYLATE 10 MG TAB PO SCH (08:04)
[2019-11-07] MEDS: CLOPIDOGREL BISULFATE 75 MG TAB PO SCH (08:04)
[2019-11-07 08:09] VITALS: BP 130/69
--- NOTE | 2019-11-07 08:45 | NUR ---
FAXED PASRR AND COVID ASSESSMENT TO FACILITY, COMPLETED RTF AND PUT ON PACKET. WAITING ON AUTH.
--- NOTE | 2019-11-07 09:00 | NUR ---
PAGED DR. JOSE REGARDING PT HGB LEVEL 7.5.
[2019-11-07] MEDS: COLLAGENASE 5 GM TUBE TP SCH (10:00)
[2019-11-07] MEDS: LISINOPRIL 20 MG TAB PO SCH (10:00)
[2019-11-07] MEDS: POVIDONE IODINE 10% 120 ML BTL EXT SCH (10:00)
--- NOTE | 2019-11-07 10:37 | NUR ---
LATE ENTERY 11/06/2019 PHYSICAL EXAMINATION: VITAL SIGNS: Temperature is 96.8, pulse 83, respiratory rate is 20, blood pressure 103/55, pulse ox 99% on room air. GENERAL: No acute distress, alert and oriented x3, cooperative on examination. HEENT: Head is normocephalic, atraumatic. Eyes; pupils are equal and reactive to light bilaterally. Extraocular movements intact bilaterally. NECK: Supple. Good range of motion. Throat; no evidence of erythema or exudates in the posterior pharynx. He has poor dentition. PULMONARY: Clear to auscultation bilaterally. No wheezing, rales, or rhonchi. No crackles appreciated. CARDIOVASCULAR: Positive S1 and S2. No murmurs, rubs, or gallops appreciated. GI: Abdomen is soft, nondistended, and nontender to palpation. Bowel sounds are present. MUSCULOSKELETAL: Strength is 5/5 throughout. No evidence of any muscle deficits on examination. No weakness appreciated. NEUROLOGIC: Cranial nerves II through XII grossly intact. No evidence of any neurological deficits on exam. SKIN: Intact. Warm to touch. Good cap refill. PSYCHIATRIC: Normal affect and mood. EXTREMITIES: No edema. Good range of motion throughout. IMPRESSION: 1. Grade 4 ulcer with osteomyelitis with microvascular disease with slow healing ulceration. 2. Left heel wound infection with osteomyelitis. 3. Peripheral artery disease. 4. Uncontrolled type 2 diabetes. [id number]
--- NOTE | 2019-11-07 10:44 | Progress Note ---
DATE: 11/07/2019 SUBJECTIVE: Mr. Davidson seen and evaluated, discussed with the nurse. MEDICATIONS: Medication list has been reviewed. As far as Infectious Disease point of view, the patient is on vancomycin IV. ALLERGIES: NO KNOWN ALLERGIES. REVIEW OF SYSTEMS: The patient has no complaint. Pain is controlled. No nausea, vomiting, fever, chills, chest pain, or shortness of breath. PHYSICAL EXAMINATION: VITAL SIGNS: Reviewed, temperature is 96.9. The patient has been afebrile for almost a week, pulse is 80, respirations 18, and blood pressure 138/69. LABORATORY STUDIES: White blood cell 7.06, hemoglobin 7.5, platelet is 316. Creatinine is 0.76. Vancomycin trough was 16.7 on 11/04/2019. MICROBIOLOGY STUDIES: Blood culture 10/25/2019 negative. Wound culture on 10/26/2019 showed gram-positive cocci in chains and clusters. However, on final cultures, mixed skin nisreen. He had another wound culture done on 11/01/2019 and again same results, showing gram-positive cocci in pairs on Gram stain with the culture showing normal skin nisreen. RADIOLOGY STUDIES: The patient is status post PICC line placement and no recent studies as well as radiology. ASSESSMENT AND PLAN: Mr. Davidson is a 59-year-old pleasant gentleman with: 1. Left heel wound, multiple debridement. 2. Right heel osteomyelitis. 3. Right heel necrotic wound and malodor. 4. Debility. 5. Elevated vancomycin level. PLAN: Continue with vancomycin IV: Discussed with case management. The plan is to send patient to custodial facility. We will try to follow with the patient at custodial facility. Continue with the antibiotics for at least four weeks. 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 The patient had bilateral lower extremities arterial ultrasound, which showed no evidence of significant arterial stenosis, however, marked reversal/small-vessel disease is questionable. This case was discussed with Dr. Andujar. MD PATRIZIA Jett/TIMO /[id number]
[2019-11-07] MEDS ORDERED: SODIUM CHLORIDE 0.9% 250ML 250 ML IV SCH (11:00)
--- NOTE | 2019-11-07 11:30 | NUR ---
CONSENT SIGNED FOR BLOOD TRANSFUSION.
[2019-11-07 11:43] VITALS: BP 124/59
--- NOTE | 2019-11-07 12:10 | Progress Note ---
DATE: 11/06/2019 SUBJECTIVE: Mr. Davidson was seen on the . This was dictated later. The patient is lying in bed comfortably. There are no complaints. REVIEW OF SYSTEMS: HEENT: Negative. PULMONARY: Negative. CARDIAC: Negative. PHYSICAL EXAMINATION: GENERAL: He is currently alert, oriented, does not seem to be in acute distress. VITAL SIGNS: Stable, afebrile. HEENT: Normocephalic. He is not icteric. NECK: Supple. CHEST: Clear bilateral. HEART: S1 and S2. No S3, S4, or murmur. ABDOMEN: Soft. Bowel sounds present. No tenderness. EXTREMITIES: No edema. SKIN: No rash. The foot is about the same. IMPRESSION: 1. Left heel ulcer, dressing is clean. 2. Osteomyelitis. 3. Status post debridement on October 27 and October 31 at the bedside. Continue with IV antibiotic. The patient remains at risk of for [id number] amputation and the patient does not want to do it at the present time. Events noted. Continue with IV antibiotic as ordered. There is no new culture data. 4. Anemia. 5. Hypertension. 6. Diabetes mellitus. 7. Neuropathy. Continue vancomycin. Continue to follow his trough, weekly CBC, weekly Chem panel. We will follow. MD PATRIZIA Jett/MODL /[id number]
--- NOTE | 2019-11-07 12:58 | NUR ---
[facility] FACILITY DISCHARGE INFORMATION PATIENT HAS BEEN ACCEPTED TO: NAME: [facility] ADDRESS:[address] [facility] ACCEPTING DITCH CLEANER: YARELIS KLEIN MD: CELESTINO ROOM:600 NURSE CALL REPORT TO: [phone] IMM SIGNED AND OBTAINED (if applicable): IMM THE FOLLOWING DOCUMENTS MUST ACCOMPANY PATIENT FOR TRANSFER: COPIED CHART:PACKET
--- NOTE | 2019-11-07 13:05 | NUR ---
CHANGE AT FACILITY TO DR JOSEPH
[2019-11-07] MEDS ORDERED: VANCOMYCIN1 GM/250 M IV (13:31)
--- NOTE | 2019-11-07 13:55 | NUR ---
DR. JOSE AT BEDSIDE.
--- NOTE | 2019-11-07 14:05 | NUR ---
PAGED LAB REGARDING BLOOD.
[2019-11-07] MEDS ORDERED: SODIUM CHLORIDE 0.9% 250ML 250 ML ONE (14:52)
--- NOTE | 2019-11-07 15:05 | NUR ---
BLOOD TRANSFUSION STARTED PER DR. JOSE. PT DENIES NEEDS AT THIS TIME.
--- NOTE | 2019-11-07 15:21 | NUR ---
FIRST 15 MINS STAYED IN THE ROOM WITH PT ON BLOOD TRANSFUSION. PT DENIES NEEDS AT THIS TIME.
[2019-11-07 15:44] VITALS: BP 141/69
--- NOTE | 2019-11-07 16:00 | NUR ---
PAGED MED RESORT AND TRANSFER REPORT GIVEN TO JO-ANN LAMBERT.
--- NOTE | 2019-11-07 17:30 | NUR ---
SHANTELL TO D/C PT PER DR. HARKINS. ADMINISTER VANCOMYCIN BEFORE TRANSFER THE PT PER THE
--- NOTE | 2019-11-07 17:35 | NUR ---
BLOOD TRANSFUSION COMPLETED PER THE ORDER. N DISTRESS NOTED. PT TOLERATED WELL. PT DENIES NEEDS AT THIS TIME.
--- NOTE | 2019-11-07 17:56 | Progress Note ---
DATE: 11/07/2019 SUBJECTIVE: The patient is seen at bedside. Denies any history of fever, chills, nausea, or vomiting. Decreased discomfort to the left lower extremity. OBJECTIVE: VITAL SIGNS: Afebrile. Pulse rate 89, respirations 20, blood pressure 124/59, O2 saturation 98%. LABORATORY DATA: Labs show a white blood cell count of 7.06, hemoglobin 7.5 with a platelet count of 316. Ulceration healing very slowly. Still some foul smell present but a lot less. Some granulation tissue noted, but some necrosis noted down to bone. Ulcers more than 4.5 to 5 x 8.5 to 9 cm in diameter, lateral aspect, left foot with most of the calcaneus laterally exposed. ASSESSMENT: Osteomyelitis, peripheral arterial, microvascular disease, cellulitis with skin temperature warm to touch. PLAN: We will need to treat this patient conservatively. The patient will need IV antibiotics for at least six weeks. Continue local wound care, dressing was changed. We will continue to follow. GUMARO Almonte/TIMO /[id number]
[2019-11-07] MEDS ORDERED: VANCOMYCIN HCL 1.25 GM in SODIUM CHLORIDE 0.9% 250ML 250 ML IV SCH (18:00)
--- NOTE | 2019-11-07 18:16 | NUR ---
SHANTELL TO D/C PT WITH PICC LINE PER DR. JOSE, DR. HALE AND DR. HARKINS.
--- NOTE | 2019-11-07 18:30 | NUR ---
[facility] WILL H[facility] [employer] INTERN PT BY 1999. PT IS AWARE ABOUT THE D/C PLAN. VERBALIZED UNDERSTANDING. NO CHANGE IN MEDS PER DR. JOSE.
--- NOTE | 2019-11-07 19:05 | NUR ---
BEDSIDE SHIFT REPORT GIVEN TO THE SUPERVISOR SHIPPING ROOM RN. PT DENIED FURTHER NEEDS.
--- NOTE | 2019-11-07 19:05 | NUR ---
REPORT RECEIVED FROM MARIPOSA BUSCH, PATIENT PENDING DISCHARGE BACK TO [facility], LEFT UPPER ARM PICC TO REMAIN FOR CONT IV ABT THERAPY, PER RN MARIPOSA PATIENT GIVEN DISCHARGE INSTRUCTIONS IN [place] IS AWARE OF THE DISCHARGE AYT 1999 TO [facility], PATIENT CURRENTLY RECEIVING DOSE OF VANCO PRIOR TO DISCHARGE INFUSING W/O DIFFICULTY
--- NOTE | 2019-11-07 20:00 | NUR ---
PATIENT DISCHARGE TO MED RESORT, PICC LINE IN [place] FOR ANTIBIOTIC THERAPY IN PLACE, FLUSHED AND CAPPED X 2 LUMENS, DRESSING C/D/I, ALL PATIENT BELONGINGS SENT TO MED RESORT VIA TRANSPORTERS
--- NOTE | 2019-11-08 00:13 | Discharge Summary ---
FINAL DISCHARGE DIAGNOSES: 1. Grade 4 ulcer with osteomyelitis with microvascular disease, slow healing ulceration, status post debridement performed by Podiatry at bedside. 2. Left heel wound infection with osteomyelitis. 3. Peripheral artery disease. 4. Uncontrolled type 2 diabetes. CONSULTANTS: 1. Podiatry. 2. Cardiology. 3. ID. PHYSICAL EXAMINATION: VITAL SIGNS: Temperature is 97.9, pulse 84 respiratory rate is 22, blood pressure 141/69, and pulse ox 100% on room air. LABORATORY DATA: Show white count 7, hemoglobin was 7.5, hematocrit 23.9, but was given blood transfusion today, but did not get the repeat by the nursing staff. Platelets of 316. Chemistry; sodium 139, potassium 4, chloride 106, bicarb 25, anion gap of 12, BUN is 12, creatinine 0.76, glucose 151, calcium is 8.9. Total bilirubin is 0.3, AST is 25, ALT is 32. CRP was 127. Albumin is 2.5. TSH is 1.8. LDL 66. MICROBIOLOGY: Blood cultures were negative. Wound cultures were all negative. IMAGING STUDIES: Foot x-ray shows underlying osteomyelitis. Heel x-ray shows no specific radiographic evidence of calcaneal osteomyelitis bilaterally. Foot MRI shows abnormal skin ulceration, soft tissue defect at the posterolateral aspect of the feet, heel, and on plantar surface with associated abnormal adjacent soft tissue edema. There is no well formed drainable fluid collection or abscess seen in the region. There is underlying abnormal bone marrow edema, cortical erosion at the posterior, inferior, lateral calcaneus best seen on series 6, image 9-12. This is likely to be osteomyelitis. Arterial Doppler of the lower extremity shows bilateral lower extremity arteries, waveforms demonstrated normal flow and no evidence of obstructive peripheral vascular disease. Vessels are sclerotic. PICC line was inserted. HOSPITAL COURSE: This gentleman is a 59-year-old male, who came into the ED with worsening left heel wound infection, needing further evaluation and management. ID, Podiatry, and Cardiology were consulted. As per Cardiology, arterial Dopplers of the lower extremities was performed, found to be normal arterial Doppler. No further cardiac workup is needed. The patient maintained on IV antibiotics. Podiatry was consulted. The patient had several debridements performed at bedside several times throughout the hospital course. Of note, he did have a debridement, but continued to have worsening necrosis. The patient will go to long-term facility with a wound VAC as per recommendations by Podiatry. As per Podiatry recommendations, he recommends local wound care with dressing changes and he recommends 6 weeks of IV antibiotic therapy and further evaluation as an outpatient in his office. As per ID, all cultures were found to be negative. He will continue with IV antibiotics with vancomycin with close followup with the long-term facility level. On discharge, the patient was doing well, back to normal baseline with no complaints. The patient agreed to go to long-term facility. On the day of discharge, vital signs were stable, labs were reviewed and stable. The patient is seen and evaluated, and examined thoroughly on the day of discharge. No other complaints. The patient verbalized understanding and agrees to plan of care, to follow up as an outpatient with primary care physician in 1 week and the precipitator operator and ID in 2 weeks' time. The patient will be discharged to long-term facility on Bactrim a day, which we followed up very closely and we will have a precipitator operator evaluate him there and continue with IV antibiotic therapy as well as local wound care. The patient verbalized understanding and agrees to plan of care. MEDICATIONS: See med reconciliation form. DISPOSITION: Home. CONDITION: Stable. DIET: Heart healthy. In the event of any worsening symptoms, the patient was advised to come back to the ED for further evaluation. Discharge summary took greater than 35 minutes. MD SHARLENE Mckeon/MODL /[id number]
--- NOTE | 2019-11-08 06:38 | Progress Note ---
DATE: 11/05/2019 SUBJECTIVE: The patient was seen at bedside, doing better. Denies any history of fever, chills, nausea, or vomiting. OBJECTIVE: VITAL SIGNS: Afebrile, pulse rate 78, respirations 18, blood pressure 112/62, O2 saturation 100%. LABORATORY DATA: Labs show white blood cell count of 7.7. Dressing dry and intact. Dressing was just changed 10 minutes ago. Does relate he is feeling better. CFT to all toes, left lower extremity less than 4 seconds. ASSESSMENT: Grade 4 ulcer, osteomyelitis, diabetic neuropathy with microvascular disease. PLAN: We will continue local wound care, IV antibiotics for the next six weeks. Continue local wound care, not ready for any wound VAC until the foul smell disappears. GUMARO Almonte/TIMO /[id number]
== END 2019-11-07 20:00 | DRG 982 ==
LOC: ER 13:37 → ERHOLD 15:33 → MED/SURG2 16:57 → OBSVTOIN 10-26 15:25
PROVIDERS: ADMIT Internal Medicine; ATTEND Internal Medicine
PROC: 0KBW0ZZ Excision of Left Foot Muscle, Open Approach (ICD-10-PCS; principal; 2019-10-28)
PROC: 02HV33Z Insertion of Infusion Device into Superior Vena Cava, Percutaneous Approach (ICD-10-PCS; 2019-10-28)
PROC: B548ZZA Ultrasonography of Superior Vena Cava, Guidance (ICD-10-PCS; 2019-10-28)
PROC: 0KBW0ZZ Excision of Left Foot Muscle, Open Approach (ICD-10-PCS; 2019-11-01)
PROC: 30233N1 Transfusion of Nonautologous Red Blood Cells into Peripheral Vein, Percutaneous Approach (ICD-10-PCS; 2019-11-07)
DX: E11.52 Type 2 diabetes mellitus with diabetic peripheral angiopathy with gangrene (principal); L03.116 Cellulitis of left lower limb; M86.9 Osteomyelitis, unspecified; I96 Gangrene, not elsewhere classified; L97.423 Non-pressure chronic ulcer of left heel and midfoot with necrosis of muscle; M86.8X7 Other osteomyelitis, ankle and foot; E11.621 Type 2 diabetes mellitus with foot ulcer; E11.69 Type 2 diabetes mellitus with other specified complication; Z86.73 Personal history of transient ischemic attack (TIA), and cerebral infarction without residual deficits; E11.42 Type 2 diabetes mellitus with diabetic polyneuropathy; Z79.4 Long term (current) use of insulin; E78.5 Hyperlipidemia, unspecified; I10 Essential (primary) hypertension
CPT/HCPCS: 36415; 36569; 74470; 80048; 80053; 80061; 80202; 82948; 83036; 83605; 84443; 85025; 85651; 86140; 86850; 86900; 86920; 87040; 87071; 87075; 87205; 93925; 96372; 99284; G0378; J0692; J1650; J2543; J2997; J3370; J7050; P9016